=== PATIENT | female | born 1970 | race Caucasian/White ===

== ENCOUNTER 2017-03-22 11:02 | Day surgery (SDC) | payer OTHER ==
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
[~2017-03-22 11:02] MED LIST: Buffered Lidocaine 0.9% SYRIN* 5 ML/SYR SYRINGE INTRADERM ONE; Famotidine IV* 10 MG/ML 2 ML (20 mg) IV ONE
[2017-03-22] MEDS ORDERED: Clindamycin 900 MG IVPREMIX(* 900 MG/50 ML SDV IV ONE (11:05)
[2017-03-22] MEDS ORDERED: Famotidine IV* 10 MG/ML 2 ML (20 mg) ONE (11:05)
[2017-03-22] MEDS ORDERED: Buffered Lidocaine 0.9% SYRIN* 5 ML/SYR SYRINGE ONE (11:05)
[2017-03-22] MEDS ORDERED: Midazolam* 1 MG/ML 5 ML VIAL (5 MG) ONE (12:07)
[2017-03-22] MEDS ORDERED: fentaNYL* 50 MCG/ML 2 ML VIAL (100 MCG VIAL) ONE ×2 (12:07→15:44)
[2017-03-22] MEDS ORDERED: Dexamethasone IV* 4 MG/ML 1 ML (4 MG) ONE (13:46)
[2017-03-22] MEDS ORDERED: ROPIVACAINE 5 MG/ML 30 ML BTL (0.5%) ONE (13:46)
[2017-03-22] MEDS ORDERED: Ketorolac INJ* 30 MG/ML 1 ML VIAL ONE (13:46)
[2017-03-22] MEDS ORDERED: Ondansetron INJ* 2 MG/ML VIAL ONE (13:46)
[2017-03-22] MEDS ORDERED: DiMENhydriNATE IV* 50 MG/ML VIAL ONE (13:46)
[2017-03-22] MEDS ORDERED: Lidocaine 2% PF * 5 ML VIAL ONE (13:46)
[2017-03-22] MEDS ORDERED: Propofol* 10 MG/ML 20 ML BTL IV PUSH ONE ×2 (13:46→16:00)
[2017-03-22] MEDS ORDERED: Acetaminophen TAB* 325 MG PO PRN (14:49)
[2017-03-22] MEDS ORDERED: oxyCODONE TAB* 5 MG TAB PO PRN (14:49)
[2017-03-22] MEDS ORDERED: DiMENhydriNATE IV* 50 MG/ML VIAL IV PUSH PRN (14:49)
[2017-03-22] MEDS ORDERED: HYDROmorphone INJ* 1 MG/ML CARPUJECT SYRINGE IV PRN (14:49)
[2017-03-22] MEDS ORDERED: hydrALAZINE IV* 20 MG/ML VIAL ONE (14:54)
[2017-03-22] MEDS ORDERED: oxyCODONE TAB* 5 MG TAB ONE (15:45)
[2017-03-22] MEDS ORDERED: fentaNYL* 50 MCG/ML 2 ML VIAL (100 MCG VIAL) IV SLOW PU PRN (15:45)
[2017-03-22] MEDS ORDERED: Succinylcholine* 20 MG/ML 10 ML VIAL ONE (16:01)
[2017-03-22 16:45] VITALS: BP 132/80
--- NOTE | 2017-04-11 15:03 | OP ---
CC: PCP, [facility] * DATE OF OPERATION: 03/22/17 - [facility] DATE OF : 66 SURGEON: Sahvon Gutierrez MD PATIENT CLERICAL ASSISTANT: BENJAMIN Mcgarry ANESTHESIOLOGIST: Adrienne Oconnor MD ANESTHESIA: General interscalene block. PRE-OP DIAGNOSIS: Right shoulder partial thickness rotator cuff tear. POST-OP DIAGNOSES: Right shoulder high-grade partial thickness rotator cuff tear with biceps tendinitis and a SLAP tear, small condylar lesion in the superior portion of the glenoid. OPERATIVE PROCEDURE: 1. Right shoulder arthroscopy with extensive glenohumeral debridement including biceps tenotomy and chondroplasty of the small superior GLAD lesion. 2. Subacromial decompression. 3. Rotator cuff repair in a double-row fashion. INDICATIONS: Agnieszka Das is a 46-year-old female who presented with several months of shoulder pain. She has failed conservative management. MRI demonstrated partial thickness rotator cuff tear with biceps tendinitis. After extensive discussion of the risks and benefits of operative versus nonoperative treatment, she has elected to proceed with surgical treatment. Risks and benefits were discussed included, but not limited to bleeding, infection, damage to nerves, vessels, surrounding structures, wound nonhealing, persistent pain, need for further surgery, scarring, stiffness, risk of anesthesia, and risk of DVT. She has elected to proceed. IMPLANTS USED: One 4.75 Healicoil and one MultiFix. COMPLICATIONS: None. ESTIMATED BLOOD LOSS: Minimal. DESCRIPTION OF PROCEDURE: The patient was greeted in the preoperative area by the attending surgeon. Correct extremity was marked and consent was confirmed. She then underwent interscalene nerve block by the anesthesiologist after which she was brought to the operative suite. She was placed in the left lateral decubitus position with all bony prominences padded. She was secured with peg board and an axial roll was placed. The right shoulder was draped unsterile with about 15 pounds of traction. The right shoulder was prepped and draped in the usual sterile fashion beginning with chlorhexidine soap, scrub, and alcohol wipe and a final prep with ChloraPrep. After appropriate surgical pause indicating site, side, procedure, and administration of antibiotics, a standard postero-lateral portal was made sharply with the 11 blade. The scope was introduced into the joint. The joint was examined. There was synovitis anteriorly. There was evidence of superior labral tear. The biceps was somewhat subluxed. The anterior portal was made in outside- in fashion. The cannula was placed. The undersurface of the rotator cuff had high- grade partial thickness tearing greater than 50%. The humeral head had grade 0 changes and glenoid head had grade 0 to 1 changes. The anterior posterior ligament had mild fraying and the inferior recess was intact. The rotator cuff had partial thickness tearing of about 20%, maybe 30%. This was tagged then using 0 PDS suture for identification in the subacromial space. The biceps was tenotomized due to subluxation. The scope was then repositioned in the subacromial space and lateral portal was made in an outside-in fashion. The shaver was used to debride back the abundant bursa that was present. Anterolateral spur was identified and the undersurface of the acromion was skeletonized using the electrocautery device. A 4.0 oval bur was used to do the acromioplasty. All fluid and debris were removed and then attention directed to the rotator cuff. The previously placed 0 PDS suture was then identified and the rotator cuff was probed and found to be easily pliable and therefore decision was made to carry out with repair. This was a small tear. The 11 blade and electrocautery device were used to complete the repair. The shaver was used to debride back the rotator cuff as well as greater tuberosity. The tuberosity was exposed and gently decorticated using an oval bur and then a rasp. The shaver was used to debride back the rotator cuff to healthy tissue. A 4.75 Healicoil anchor was placed and then using that with excellent purchase, the starting awl was then used to make a small microfracture around the greater tuberosity to allow for different points of healing and allow for good bleeding. The sutures were then passed in horizontal mattress configuration through the tendon. These were tied down using arthroscopic knot tying and the strands were then brought in through MultiFix anchor for lateral row fixation. Final images were obtained and the cuff was restored and the shoulder was taken through range of motion and found to be stable. The wounds were copiously irrigated with sterile saline. The portals were closed with 3-0 nylon in interrupted fashion. Sterile dressings were applied as well as Cryo/Cuff and an UltraSling. She was awoken from anesthesia and transferred to the PACU in stable condition. POSTOPERATIVE PLAN: She will be nonweightbearing. She will be in a sling for 6 weeks. She will be allowed range of motion of elbows and hand immediately. I will see the patient back in 10 to 14 days. [id number]/[facility] #: [id number] MTDD
== END 2017-03-22 16:46 | disposition home or self-care (01) ==
LOC: OR 11:02
PROVIDERS: ATTEND Orthopaedic Surgery
DX: S46.011A Strain of muscle(s) and tendon(s) of the rotator cuff of right shoulder, initial encounter (principal); V43.92XA Unspecified car occupant injured in collision with other type car in traffic accident, initial encounter; G89.18 Other acute postprocedural pain; M75.21 Bicipital tendinitis, right shoulder; S43.431A Superior glenoid labrum lesion of right shoulder, initial encounter; Y92.9 Unspecified place or not applicable; M75.81 Other shoulder lesions, right shoulder; E66.9 Obesity, unspecified; Z79.82 Long term (current) use of aspirin; I10 Essential (primary) hypertension; Z86.73 Personal history of transient ischemic attack (TIA), and cerebral infarction without residual deficits; Z88.0 Allergy status to penicillin; Z88.5 Allergy status to narcotic agent
CPT/HCPCS: A9270-GY; C1713; J0330; J0360; J1100; J1240; J1885; J2250; J2405; J2704; J2795; J3010

== ENCOUNTER 2017-07-26 11:50 | Day surgery (SDC) | payer OTHER ==
--- NOTE | 2017-07-17 03:47 | HP ---
PREOPERATIVE HISTORY AND PHYSICAL: DATE OF ADMISSION/SURGERY: 07/26/17 DATE OF OFFICE VISIT: 07/14/17 ATTENDING SURGEON: Dr. Shavon Gutierrez.* (DICTATED BY BENJAMIN CEBALLOS) PROCEDURE: Right shoulder arthroscopic rotator cuff repair. CHIEF COMPLAINT: Right shoulder. HISTORY OF PRESENT ILLNESS: Agnieszka is a 46-year-old female, who presents to the clinic 16 weeks 2 days status post right shoulder rotator cuff repair. She had re- torn her rotator cuff tear and has failed conservative measures to include physical therapy. She continues to have pain; therefore, she has agreed to undergo a right shoulder arthroscopic rotator cuff repair with Dr. Gutierrez on 07/26/17. PAST MEDICAL HISTORY: Obesity, hypertension, high cholesterol, arthritis, history of possible stroke. PAST SURGICAL HISTORY: x3, tubal ligation, appendectomy, hernia surgery, oral surgery, and right shoulder rotator cuff repair. The patient denies prior complications with anesthesia. MEDICATIONS: The patient states that she is currently not taking any of her medications. ALLERGIES: OXYCODONE, MORPHINE, PENICILLIN. FAMILY HISTORY: Positive for diabetes, heart disease, hypertension, stroke, and cancer. Negative for DVT or PE. SOCIAL HISTORY: She lives with her spouse. 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 She reports occasional alcohol consumption. REVIEW OF SYSTEMS: A 14-point review of systems was reviewed with the patient. Positive for current complaint, otherwise negative. Denies chest pain, shortness of breath, fevers, chills, history of bleeding disorder, history of DVT or PE. PHYSICAL EXAMINATION GENERAL: A 46-year-old well-developed, well-nourished female, in no acute distress. Alert and oriented x3. Appropriate mood and affect. VITAL SIGNS: Height 64 inches, weight 320 pounds, blood pressure 126/84, respiratory rate 20, BMI 54.9. HEENT: Normocephalic, atraumatic. PERRLA. Throat clear. NECK: Supple. PULMONARY: Lungs are clear to auscultation bilaterally. No wheezing, rhonchi, or rales. CARDIO: Regular rate and rhythm. S1 and S2. No murmurs, gallops, rubs. No edema. ABDOMEN: Positive bowel sounds. Soft and nontender. NEURO: Alert and oriented x3. Cranial nerves grossly intact. Sensation is intact to light touch. MUSCULOSKELETAL: Right upper extremity: Skin is intact. Well-healed surgical incision. Forward flexion and abduct to 90, externally rotate to 20. +2 radial pulse. Sensation is intact to light touch distally. DIAGNOSTIC STUDIES: MR arthrogram revealed partial thickness tear of the supraspinatus tendon with subacromial impingement. IMPRESSION: Right shoulder rotator cuff tear. PLAN: The patient is scheduled to undergo a right shoulder arthroscopic rotator cuff repair with Dr. Gutierrez on 07/26/17. She will follow up 10 to 14 days postop for followup and suture removal. [place] was sent to the patient's pharmacy for postop pain management and clindamycin for antibiotic prophylaxis. BENJAMIN CEBALLOS [id number]/[facility] #: [id number] MTDD
[~2017-07-26 11:50] MED LIST changes: -Buffered Lidocaine 0.9% SYRIN* 5 ML/SYR SYRINGE INTRADERM ONE; +Cisatracurium* 2 MG/ML MDV 5 ML ONE; +Dexamethasone IV* 4 MG/ML 1 ML (4 MG) ONE; -Famotidine IV* 10 MG/ML 2 ML (20 mg) IV ONE; +KETAMINE HCL* 50 MG/ML 10 ML VIAL ONE; +Ketorolac INJ* 30 MG/ML 1 ML VIAL ONE; +Lidocaine 2% PF * 5 ML VIAL ONE; +Midazolam* 1 MG/ML 10 ML VIAL (10 MG) ONE; +Ondansetron INJ* 2 MG/ML VIAL ONE; +Propofol* 10 MG/ML 20 ML BTL IV PUSH ONE; +ROPIVACAINE 5 MG/ML 30 ML BTL (0.5%) ONE; +fentaNYL* 50 MCG/ML 2 ML VIAL (100 MCG VIAL) ONE
[2017-07-26] MEDS ORDERED: Clindamycin 900 MG IVPREMIX(* 900 MG/50 ML SDV IV ONE (12:01)
[2017-07-26] MEDS ORDERED: Buffered Lidocaine 0.9% SYRIN* 5 ML/SYR SYRINGE ONE (12:01)
[2017-07-26] MEDS ORDERED: Famotidine IV* 10 MG/ML 2 ML (20 mg) ONE (12:01)
[2017-07-26] MEDS ORDERED: Metoclopramide TAB* 10 MG ONE (12:01)
[2017-07-26] MEDS ORDERED: Bupivacaine 0.25% SDV* 30 ML ONE (12:16)
[2017-07-26] MEDS ORDERED: Ondansetron INJ* 2 MG/ML VIAL IV PRN (14:37)
[2017-07-26] MEDS ORDERED: Naloxone* 0.4 MG/ML 1 ML VIAL IV PRN (14:37)
[2017-07-26] MEDS ORDERED: fentaNYL* 50 MCG/ML 2 ML VIAL (100 MCG VIAL) ONE ×2 (16:06→16:56)
[2017-07-26] MEDS: fentaNYL* 50 MCG/ML 2 ML VIAL (100 MCG VIAL) IV PRN ×3 (16:10→16:59)
[2017-07-26] MEDS ORDERED: oxyCODONE/Acetamin 5/325 MG* TAB ONE (16:36)
[2017-07-26] MEDS: oxyCODONE/Acetamin 5/325 MG* TAB PO PRN ×2 (16:38→16:41)
[2017-07-26 17:51] VITALS: BP 144/96
[2017-07-28] MEDS ORDERED: Famotidine IV* 10 MG/ML 2 ML (20 mg) IV ONE (06:00)
[2017-07-28] MEDS ORDERED: Metoclopramide TAB* 10 MG PO ONE (06:00)
[2017-07-28] MEDS ORDERED: Buffered Lidocaine 0.9% SYRIN* 5 ML/SYR SYRINGE INTRADERM ONE (06:00)
--- NOTE | 2017-07-31 19:23 | OP ---
DATE OF OPERATION: 07/26/17 - [facility] DATE OF : 66 SURGEON: Shavon Gutierrez MD ASSOCIATE RESEARCH SCIENTIST: BENJAMIN Mcgarry. An research program assistant was needed for the entirety of the case to help with positioning, retraction, and was utilized throughout all portions of the case. ANESTHESIOLOGIST: Chris Hooper MD ANESTHESIA: General interscalene block. PRE-OP DIAGNOSES: 1. Retear of the right supraspinatus tendon. 2. Morbid obesity. POST-OP DIAGNOSES: 1. Retear of the right supraspinatus tendon. 2. Morbid obesity. OPERATIVE PROCEDURE: 1. Right shoulder revision arthroscopic rotator cuff repair. 2. Glenohumeral debridement. 3. Removal of sutures x3. INDICATIONS: Agnieszka Das is a 47-year-old female, who had evidence of an articular sided partial thickness tear, underwent arthroscopy with biceps tenotomy and rotator cuff repair. She had several episodes of noncompliance versus accidents for which we were concerned for the integrity of the repair. She had an MR arthrogram that demonstrated no obvious tearing, but she had persistent symptoms. She failed conservative management including injections and physical therapy. Risks and benefits of surgery were discussed at length that include, but are not limited to, bleeding, infection, damage to nerves, vessels, surrounding structures, wound nonhealing, persistent pain, need for surgery, scarring, stiffness, incomplete relief of symptoms, risk of anesthesia. She underwent preoperative medical risk assessment for the optimized surgery. IMPLANTS: Two 4.75 Healicoils, 1 MultiFix. DESCRIPTION OF PROCEDURE: The patient was greeted in the preoperative area by the attending surgeon. The correct extremity was marked and consent was confirmed. The patient then underwent interscalene nerve block by the anesthesiologist, after which she was brought back to the operating suite, where she was placed in supine position on the operating room table. She then underwent general anesthesia and endotracheal intubation, after which she was placed in the left lateral decubitus position with all bony prominences padded. She was secured with a peg board. The right arm was draped unsterile with 10 pounds of traction. The right shoulder was then prepped and draped in the usual sterile fashion beginning with chlorhexidine soap, scrub, and alcohol wipe and a final prep of ChloraPrep. After appropriate surgical pause indicating side, site, procedure, and administration of antibiotics, the standard postero-lateral portal was made sharply with an 11 blade. The scope was introduced into the joint. Joint was examined. There was evidence of a previous biceps tenotomy in the superior labrum, anterior and posterior labrum had some mild fraying. There was a small amount of chondrosis in the joint as well. The anterior portal was made in an outside-in fashion. Shaver was used to debride the anterior and posterior superior labrum as well as cartilage. The subscap was intact. The undersurface of the rotator cuff had evidence of partial supraspinatus tearing with the sutures visible. After the debridement was completed, attention was directed to the subacromial space. Lateral portal was made in an outside-in fashion. Shaver was used to debride the abundant bursa that was present. The undersurface of the acromion was skeletonized and debrided back using a 4.0 oval bur. The rotator cuff was probed and again found to have partial thickness tearing on the bursal side. At this point, the previous MultiFix anchor sutures were identified and there was found to be some loss of tension on this. The electrocautery device was then used to complete the tear. The biters were then used to remove the previously placed sutures. This was tedious and the sutures were then carefully removed, so as to be able to repair the rotator cuff back. Once this was done, the greater tuberosity was prepared in the usual fashion with electrocautery device, the rasp, as well as the 4.0 oval bur to gently decorticate the footprint. After this was done, the rotator cuff was also debrided back using a shaver. Then, through 2 separate stab incisions, 4.75 Healicoils were placed. One was just over the previous one, second was placed more posteriorly, but along the medial aspect of the greater tuberosity footprint. Sutures were then placed in horizontal mattress configuration and tied down using arthroscopic knot-tying technique, where prior to being tied down, the awl was then used to gently do a microfracture of the greater tuberosity to allow for further points of fixation. Sutures were then tacked down. Six strands of the remaining sutures were then passed through a MultiFix anchor, which was then impacted into position for lateral row fixation. The shoulder was taken through range of motion and found to be stable. Final images were obtained. The wounds were copiously irrigated with sterile saline. Portals were closed with 3-0 nylon in interrupted fashion. Sterile dressings were applied as well as the Cryo/Cuff and UltraSling. She was awoken from anesthesia and transferred to the PACU in stable condition. POSTOPERATIVE PLAN: She will be nonweightbearing. She will start physical therapy in 4 to 5 weeks. She will be discharged on pain medications and antibiotics. She was instructed again not to use the arm. DVT prophylaxis was considered, but deferred due to no previous personal or family history. [id number]/[facility] #: [id number] MTDD
== END 2017-07-26 17:51 | disposition home or self-care (01) ==
LOC: OR 11:50
PROVIDERS: ATTEND Orthopaedic Surgery
DX: S46.011A Strain of muscle(s) and tendon(s) of the rotator cuff of right shoulder, initial encounter (principal); E66.01 Morbid (severe) obesity due to excess calories; G89.18 Other acute postprocedural pain; E11.9 Type 2 diabetes mellitus without complications; K21.9 Gastro-esophageal reflux disease without esophagitis; I10 Essential (primary) hypertension; Z68.44 Body mass index [BMI] 60.0-69.9, adult
CPT/HCPCS: 81025; A9270-GY; C1713; J1100; J1885; J2250; J2405; J2704; J2795; J3010

== ENCOUNTER 2017-12-25 15:43 | Emergency (ER) | payer OTHER ==
--- OUTSIDE RECORDS SUMMARY | 2017-12-25 16:06 | XMS REPORT ---
:1970 External Reference #:[id number] Author Organization [facility] Address [address] [place] [address] Phone [phone] Care Team Providers Name Role Phone Ailyn Allison NP Care Team Information Sound Controller Unavailable Britta Donnelly M.D. Primary Care Physician Unavailable Payers Type Date Identification Numbers Payment Provider Subscriber Commercial Policy Number: [id number] [place] Agnieszka Das PayID: [id number] [address] [place] [address] Problems Description No Information Family History Date Family Member(s) Problem(s) Comments Father Unknown : (age 46 Years) Mother due to Cancer First Brother Hypertension First Brother 47 First Sister Hypertension First Sister 46 Social History Description No Information Available Allergies, Adverse Reactions, Alerts Date Description Reaction Status Severity Comments 12/08/2017 Morphine Shock active Moderate Medications Medication Date Status Form Strength Qnty SIG Indications Ordering Provider Bupropion HCL Active Tablets ER 150mg 1 by Unknown ER (XL) 00 24HR mouth every day Gabapentin Active Capsules 300mg 1 by Unknown 00 mouth three times a day Vital Signs Date Vital Result Comment 12/08/2017 Weight 352.00 lb Height 64 inches 5'4" BMI (Body Mass Index) 60.4 kg/m2 BP Systolic 146 mmHg BP Diastolic 86 mmHg Heart Rate 79 /min O2 % BldC Oximetry 97 % Body Temperature 98.2 F [place] Score 3 Neck Circumference in inches 16 Pain Level 0 Results Description No Information Procedures Description No Information Plan of Care No Information Available
--- OUTSIDE RECORDS SUMMARY | 2017-12-25 16:06 | XMS REPORT ---
:1970 External Reference #:[id number] Author Organization [facility] Address [address] [place] [address] [place] [address] Phone [phone] Care Team Providers Name Role Phone Ariadna Fatima MD Primary Care Physician Unavailable Payers Type Date Identification Numbers Payment Provider Subscriber Commercial Effective: Policy Number: [facility] Broderick Das 2012 [id number] Group Number: [id number] [address] Group Name: [place] [address] PayID: [id number] Workers Compensation Onset: 2011 Policy Number: Marilia Muniz [id number] Pippa PayID: [id number] [address] [place] [address] Workers Compensation Effective: Policy Number: Owen Muniz 2016 [id number] Pippa Onset: 2016 Group Name: [phone] [address] PayID: [id number] [place] [address] Problems Date Description Provider Status Onset: 10/21/2016 Chest pain Ryan Harmon M.D., Active [facility] Onset: 10/21/2016 Dyspnea Ryan Harmon M.D., Active [facility] Onset: 01/24/2017 Sprain of shoulder and upper arm Shavon Gutierrez MD Active Onset: 01/24/2017 Injury of shoulder region Shavon Gutierrez MD Active Family History Date Family Member(s) Problem(s) Comments General brain cancer Mother Hypertension Mother Lung Cancer Mother Brain Cancer Mother Breast Cancer Mother clotting disorder Social History Type Date Description Comments Marital Status Lives With Occupation home health care provider ETOH Use Occasionally consumes wine Smoking Patient has never smoked Recreational Drug Use Denies Drug Use Daily Caffeine 03/01/2017 Does Not Consume Caffeine Exercise Type/Frequency Exercises regularly walks , upper body at PT Allergies, Adverse Reactions, Alerts Date Description Reaction Status Severity Comments 07/19/2010 Oxycodone active Questionable allergy since she has taken now without reactio 07/19/2010 Morphine active 07/22/2010 Penicillin active 09/21/2017 Tramadol Itching active Medications Medication Date Status Form Strength Qnty SIG Indications Ordering Provider Edwards 07/24 Active Tablets 5-325mg 20tab 1 tab by s mouth every Yaseen, 6 hours as MD needed post op pain Vitamin D Active Tablets 1000U 1 po bid Unknown /0000 Womens One Daily Active Tablets 1 by mouth Unknown /0000 every day Bupropion HCL ER Active Tablets 150mg 1 by mouth Unknown (SR) /0000 ER 12HR every day Butalbital/Acetami Active Capsules 50-325-40 take 1 Unknown nophen/Caffeine /0000 mg capsule as needed for bad migraine n mdd 1 Gabapentin Active Tablets 600mg take one Unknown /0000 tablet by mouth three times a day Diclofenac Sodium 09/07 Hx Tablets 75mg 60tab take [address] s mouth twice Yaseen, - a day for 12/24 pain Tramadol HCL 07/31 Hx Tablets 50mg 30tab 1-2 tablets s by mouth Sanchez, - every 6 09/08 hours as needed pain Zofran Odt 07/27 Hx Tablets 4mg 30tab take 1 by Dispers s mouth Yaseen, - sublingual 12/24 every hours as needed nausea. Clindamycin HCL 07/14 Hx Capsules 300mg 12cap take 1 by s mouth four Yaseen, - times a day 09/08 for 3 days post op. Do not take before surgery Oxycodone HCL 03/23 Hx Tablets 5mg 30tab 1 tabs by s mouth bid Yaseen, - prn 12/24 Clindamycin HCL 03/22 Hx Capsules 300mg 12cap take 1 by s mouth four Yaseen, - times a day 04/05 for 3 days Percocet 03/14 Hx Tablets 5-325mg 40tab 1-2 tabs by Chivo6Rochelle s mouth every Yaseen, - 4-6 hours 12/24 as needed post op pain. Ibuprofen 03/14 Hx Tablets 800mg 60tab take 1 by Chivo6Rochelle s mouth three Yaseen, - times a day 12/24 as needed for pain. Ibuprofen 01/26 Hx Tablets 800mg 60tab take 1 by lissett s mouth three Yaseen, - times a day 12/24 as needed for pain Valium 07/22 Hx Tablets 10mg 1tabs 1 po 1 hr Andrae . prior to Padmini, - mri M.DMuna 01/28 Robaxin-750 07/19 Hx Tablets 750mg 30tab 1-2 po q Andrae M. s 8hrs prn Padmini, - muscle M.DMuna 01/28 Lyrica Hx Capsules 50mg 60cap 1 po tid Unknown /0000 s - 10/07 Meloxicam Hx Tablets 7.5mg 30tab 1 po qd Unknown /0000 s - 10/07 Lidoderm Hx Patches 5% 30uni topical 12 Unknown /0000 ts hours - 10/07 Tramadol HCL Hx Tablets 50mg 100ta qid prn Unknown /0000 bs - 10/07 Hydrocodone/Acetam Hx Tablets 5-325mg 20tab 1-2 po qid Unknown inophen /0000 s prn pain - 10/07 Prednisone Hx Tablets 20mg 20tab 3 pills qd Unknown /0000 s for 5 days - 10/07 Aspir-81 00 Hx Tablets 81mg 1 by mouth Unknown /0000 DR every day - 12/24 Hydrochlorothiazid Hx Tablets 25mg 1 by mouth Unknown e /0000 every day - 03/13 Atorvastatin 00/00 Hx Tablets 20mg take 1 Unknown Calcium /0000 tablet at - bedtime 10/20 Amlodipine Hx Tablets 10mg 1 by mouth Unknown Besylate /0000 every day - 03/13 Losartan Potassium 00 Hx Tablets 100mg 1 by mouth Unknown /0000 every day - 12/24 Aleve 00 Hx Tablets 220mg 1 po bid Unknown /0000 prn - 12/21 Fioricet Hx Capsules 50-300-40 1-2 by Unknown /0000 mg mouth every - 4 hours prn 12/24 headache Nystop Hx Powder 839867Hkg apply twice Unknown /0000 t/GM daily to - affected 12/24 areas pr Oxycodone-Acetamin Hx Tablets 5-325mg 1 tabs by Unknown ophen /0000 mouth every - 6 hours as 03/13 needed for pain Tramadol HCL Hx Tablets 50mg 60tab 1-2 tablets Zaneb /0000 s every 6 Yaseen, - hours as 02/28 needed Ibuprofen Hx Tablets 800mg by mouth Unknown /0000 three times - a day as 01/26 Tramadol HCL ER Hx Caps ER 100mg 1 by mouth Unknown /0000 24HR as needed - 09/08 Medications Administered in Office Medication Date Status Form Strength Qnty SIG Indications Ordering Provider Triamcinolone 06/06/ Administered Injection Zaneb (Kenalog) 2016 MD Matt Triamcinolone 01/24/ Administered Injection Zaneb (Kenalog) 2016 MD Matt Vital Signs Date Vital Result Comment 12/25/2017 Height 64 inches 5'4" Weight 320.00 lb BP Systolic 140 mmHg BP Diastolic 94 mmHg Body Temperature 97.3 F Pain Level 3 BMI (Body Mass Index) 54.9 kg/m2 10/31/2017 Height 64 inches 5'4" Weight 320.00 lb Heart Rate 76 /min BP Systolic 150 mmHg BP Diastolic 100 mmHg Respiratory Rate 16 /min Body Temperature 97.2 F Pain Level 5 BMI (Body Mass Index) 54.9 kg/m2 09/21/2017 Height 64 inches 5'4" Weight 320.00 lb Heart Rate 70 /min BP Systolic Sitting 126 mmHg BP Diastolic Sitting 90 mmHg Respiratory Rate 16 /min Pain Level 7 BMI (Body Mass Index) 54.9 kg/m2 08/08/2017 Height 64 inches 5'4" Weight 320.00 lb Heart Rate 87 /min Respiratory Rate 18 /min Body Temperature 97.8 F Pain Level 3 BMI (Body Mass Index) 54.9 kg/m2 07/14/2017 Height 64 inches 5'4" Weight 320.00 lb BP Systolic 126 mmHg BP Diastolic 84 mmHg Respiratory Rate 20 /min Pain Level 5 BMI (Body Mass Index) 54.9 kg/m2 06/06/2017 Height 64 inches 5'4" Weight 320.00 lb BP Systolic 136 mmHg BP Diastolic 90 mmHg Respiratory Rate 20 /min Body Temperature 97.6 F Pain Level 5 BMI (Body Mass Index) 54.9 kg/m2 05/26/2017 Height 64 inches 5'4" Weight 320.00 lb BP Systolic 140 mmHg BP Diastolic 80 mmHg Body Temperature 98.0 F Pain Level 6 BMI (Body Mass Index) 54.9 kg/m2 05/02/2017 Height 64.5 inches 5'4.50" Weight 335.00 lb Respiratory Rate 16 /min Pain Level 7 BMI (Body Mass Index) 56.6 kg/m2 04/06/2017 Height 64.5 inches 5'4.50" Weight 335.00 lb Heart Rate 76 /min Respiratory Rate 15 /min Body Temperature 97.1 F Pain Level 7 BMI (Body Mass Index) 56.6 kg/m2 03/30/2017 Height 64.5 inches 5'4.50" Weight 335.00 lb BP Systolic 142 mmHg BP Diastolic 88 mmHg Respiratory Rate 20 /min Body Temperature 97.2 F Pain Level 8 BMI (Body Mass Index) 56.6 kg/m2 03/14/2017 Heart Rate 68 /min Respiratory Rate 17 /min Body Temperature 97.2 F 03/01/2017 Height 64.5 inches 5'4.50" Heart Rate 76 /min BP Systolic Sitting 130 mmHg Lue thigh cuff BP Diastolic Sitting 86 mmHg Lue thigh cuff BP Systolic Standing 136 mmHg Lue thigh cuff BP Diastolic Standing 88 mmHg Lue thigh cuff Respiratory Rate 16 /min Ejection Fraction 55-60% echo 10/201602/14/2017 Height 64.5 inches 5'4.50" Weight 335.00 lb Heart Rate 72 /min BP Systolic 142 mmHg BP Diastolic 88 mmHg Respiratory Rate 18 /min Body Temperature 97.5 F Pain Level 7 BMI (Body Mass Index) 56.6 kg/m2 01/24/2017 Height 64.5 inches 5'4.50" Weight 335.00 lb Heart Rate 68 /min BP Systolic Sitting 140 mmHg BP Diastolic Sitting 90 mmHg Body Temperature 96.8 F Pain Level 7 BMI (Body Mass Index) 56.6 kg/m2 12/23/2016 Height 63.50 inches 5'3.50" Weight 333.44 lb Heart Rate 74 /min BP Systolic Sitting 132 mmHg reg cuff- LA-on forearm BP Diastolic Sitting 78 mmHg reg cuff- LA-on forearm BP Systolic Standing 138 mmHg reg cuff- LA-on forearm BP Diastolic Standing 82 mmHg reg cuff- LA-on forearm Respiratory Rate 16 /min O2 % BldC Oximetry 98 % Ra BMI (Body Mass Index) 58.1 kg/m2 10/21/2016 Height 63.50 inches 5'3.50" Weight 333.00 lb Heart Rate 72 /min BP Systolic 128 mmHg Ra thigh cuff BP Diastolic 94 mmHg Ra thigh cuff BP Systolic Sitting 124 mmHg LA thigh Cuff BP Diastolic Sitting 92 mmHg LA thigh Cuff BP Systolic Standing 132 mmHg LA thigh cuff BP Diastolic Standing 90 mmHg LA thigh cuff Respiratory Rate 20 /min Pain Level 3 O2 % BldC Oximetry 98 % BMI (Body Mass Index) 58.1 kg/m2 10/09/2015 Height 64 inches 5'4" Weight 325.00 lb Heart Rate 64 /min BP Systolic Sitting 136 mmHg BP Diastolic Sitting 94 mmHg BMI (Body Mass Index) 55.8 kg/m2 01/28/2013 Weight 338.00 lb Results Test Date Test Result H/L Range Note Laboratory test finding 07/26/2017 Point of Care Glucose 74 mg/dL 70-100 1 Xray 01/28/2013 Shoulder Complete LT <pending> Min Of 2 Views 1 Fur Coat Sewer: [id number] Procedures Date CPT Code Description Status 07/26/2017 69617 Arthroscopy Shoulder,W/Rotator Cuff Repair Completed 07/26/2017 18950 Arthroscopy Shoulder,W/Rotator Cuff Repair Completed 07/26/2017 22580 Arthroscopy Shoulder Debridement Extensive Completed 07/26/2017 24407 Arthroscopy Shoulder Debridement Extensive Completed 06/06/2017 97772 Inject/Drain Joint/Bursa Major W/O US Completed 03/22/2017 63999 Arthroscopy Shoulder,W/Rotator Cuff Repair Completed 03/22/2017 61790 Arthroscopy Shoulder,W/Rotator Cuff Repair Completed 03/22/2017 80449 Arthroscopy,Shoulder Decompression Of Subacromial Space Completed W/Acromio 03/22/2017 50604 Arthroscopy,Shoulder Decompression Of Subacromial Space Completed W/Acromio 03/01/2017 89821 EKG Tracing & Interpretation Completed 01/24/2017 47197 Inject/Drain Joint/Bursa Major W/O US Completed 12/07/2016 90060 Cardiac Event Monitor Completed 11/08/2016 31321 Event Monitor/Phys Review/Interp. Completed 11/08/2016 72622 Cardiac Event Monitor Completed 10/31/2016 09270 ECHO Stress Test Incl Perf Contiuous ekg Monitoring Completed W/Phys Superv 10/28/2016 32028 ECHO Transthoracic, Real-Time 2D With Doppler And Color Completed Flow 10/26/2016 79736 Holter Monitor Review (24 hr)dr review & interp only Completed 10/25/2016 71919 ECG Monitor/Recording W/Visual Superimposition Scanning Completed 10/21/2016 86218 EKG Tracing & Interpretation Completed Encounters Type Date Location Provider CPT E/M Dx Office Visit 10/31/2017 [place] [address] S46.011D 9:00a [facility] Office Visit 07/14/2017 [place] [address] S46.011D 8:45a [facility] Office Visit 03/01/2017 [facility] Ryan Harmon, 31249 R06.02 11:15a Marcial Langston, [facility] Z01.810 S46.011D S46.111D Office Visit 02/14/2017 9:45a [facility] [place] [address] S46.011A [facility] S46.101A S46.111A Office Visit 01/24/2017 9:00a [facility] [place] [address] S46.011A [facility] S46.101A S46.111A Office Visit 12/23/2016 1:30p [facility], 06910 R06.02 Marcial Hu M.D., ADE[place], [facility] Office Visit 10/21/2016 10:00a [facility]on, 38909 R07.9 [facility] FACC, FASNC R06.02 R94.31 Office Visit 10/09/2015 11:00a [facility] [place] [address] S80.02xA [facility] M17.12 Office Visit 01/28/2013 3:00p [facility] Tyler Sullivan M.D. 97747 840.8 AT [place] Office Visit 07/21/2011 10:45a [facility] [place], 42107 847.2 Marcial Langston Office Visit 07/19/2010 2:15p [facility] [place], 99757 724.2 Marcial Langston 724.3 Plan of Care Future Appointment(s):02/08/2018 8:45 am - Shavon Gutierrez MD at [facility]12/25/2017 - BENJAMIN Mcgarry-CS46.011D Strain of musc/ tend the rotator cuff of right shoulder, subsFollow up:Follow up: 6-8 weeks
--- OUTSIDE RECORDS SUMMARY | 2017-12-25 16:06 | XMS REPORT ---
:1970 External Reference #:[id number] Author Organization [facility] Address [address] [place] [address] Phone [phone] Care Team Providers Name Role Phone Ailyn Allison NP Care Team Information [employer]er [employer] Unavailable Britta Donnelly M.D. Primary Care Physician Unavailable Payers Type Date Identification Numbers Payment Provider Subscriber Commercial Policy Number: [id number] [place]/Lesvia De La Torre Agnieszka Das PayID: [id number] [address] [place] [address] Problems Description No Information Family History Date [...] Oximetry 97 % Body Temperature 98.2 F [place] Score 3 Neck Circumference in inches 16 Pain Level 0 Results Description No Information Procedures Description No Information Plan of Care No Information Available
--- NOTE | 2017-12-25 16:12 | UC ---
Ear Complaint HPI - HPI Summary HPI Summary: Patient presents complaining of pain in her left ear ever since yesterday afternoon. She describes it as gradual in onset and worsening. She states that it radiates into her left eye and she feels light sensitive as a result. She denies any history of drainage from the ear or injury to the ear. She denies any fever or chills, headache and loss of vision. She did have a preop wellness appointment today "but didn't tell them because it wasn't that bothersome". On review of systems she does admit to some mild ringing. - History of Current Complaint Stated Complaint: LEFT EAR PAIN Time Seen by Provider: 12/25/17 16:04 Hx Obtained From: Patient Hx Last Menstrual Period: 2011 Onset/Duration: Gradual Onset Aggravating Factors: Nothing Alleviating Factors: Nothing Associated Signs/Symptoms: Negative: Discharge, Hearing Loss, Foreign Body Sensation, Trauma to Ear, Swelling @ - Allergies/Home Medications Allergies/Adverse Reactions: Allergies Allergy/AdvReac Type Severity Reaction Status Date / Time latex Allergy Severe See Comment Verified 12/25/17 16:07 morphine Allergy Severe Anaphylatic Verified 12/25/17 16:07 Shock Penicillins Allergy Severe Nausea And Verified 12/25/17 16:07 Vomiting NSAIDS (Non-Steroidal AdvReac See Comment Verified 12/25/17 16:17 Anti-Inflamma Home Medications: Home Medications Gabapentin 600 mg PO TID 12/25/17 [History Confirmed 12/25/17] buPROPion TAB* [Wellbutrin TAB*] 75 mg PO DAILY 12/25/17 [History Confirmed ] PMH/Surg Hx/FS Hx/Imm Hx - Additional Past Medical History Additional PMH: Chronic right shoulder pain secondary to injury, depression, vitamin D deficiency. - Surgical History Surgical History: Yes Surgery Procedure, Year, and Place: 1994. 1997. 2000 X 3, [facility] (, [facility] [place] Appendectomy, [facility], 1976;. Hernia Repair x 2, [facility] ([facility]), 1998;. 1975 Tonsillectomy/ Addenoidectomy, [facility]. Rt SHOULDER - ROTATOR REPAIR, BICEP,TRICEP & LABRAL REPAIR - Family History Known Family History: Positive: Hypertension - Social History Occupation: Disabled Alcohol Use: Occasionally Alcohol Amount: [place] Substance Use Type: None Smoking Status (MU): Never Smoked Tobacco Have You Smoked in the Last Year: No - Immunization History Most Recent Tetanus Shot: 2006 Vaccination Up to Date: Yes Review of Systems Constitutional: Negative Skin: Negative Eyes: Photophobia - L, Other - no blurry or double vision ENT: Ear Ache - L Respiratory: Negative Cardiovascular: Negative Gastrointestinal: Negative Genitourinary: Negative Motor: Negative Neurovascular: Negative Musculoskeletal: Negative Neurological: Negative Psychological: Negative Is Patient Immunocompromised?: No All Other Systems Reviewed And Are Negative: Yes Physical Exam Triage Information Reviewed: Yes Appearance: Well-Appearing Vital Signs Reviewed: Yes Eyes: Positive: Other: - No periorbital edema or erythema. Pupils are equal round reactive to light, extraocular movements intact. Anterior chambers clear. Fluorescein stain placed and no uptake. No foreign body under the lids on the left. No pre-or postauricular adenopathy. Patient had no difficulty keeping either eye open during her eye exam seemingly with distraction. ENT: Positive: Pharynx normal, TMs normal - R, TM red - Slightly injected and retracted but the canal is clear., Other - No temporal cords or tenderness over the temporal regions appreciated. Patient notes slight tenderness over the left anterior ear in the area of the trigeminal nerve.. Negative: Nasal congestion, Nasal drainage Neck: Positive: Supple, Nontender, No Lymphadenopathy Respiratory: Positive: Lungs clear, Normal breath sounds Cardiovascular: Positive: RRR, No Murmur Abdomen Description: Positive: Nontender, No Organomegaly, Soft Bowel Sounds: Positive: Present Musculoskeletal: Positive: ROM Intact Neurological: Positive: Other: - Patient alert and oriented to person place and time. Cranial nerves II through XII grossly intact. Sensory vascular motor is intact 4. Patient has normal steady gait. NIH=0. Psychological: Positive: Age Appropriate Behavior Skin Exam: Normal Diagnostics - Radiology No standard instances Xray Interpretation: No Acute Changes Radiology Interpretation Completed By: Radiologist - CT Brain Ear Complaint Course/Dx - Course Course Of Treatment: Case d/w Dr Stanley. Will CT just to be thorough; however, low suspicion for intracranial process. if unremarkable, will tx with antibiotic , medrol dose kasey and f/u with her ENT, Dr Pacheco. Patient is nontoxic. Her eye exam is unremarkable. There is no evidence of corneal ulcers, dendrites or abrasions. During distraction, there was no photophobia. Her neuro exam is reassuring and unremarkable. There is nothing to suggest Marquez's palsy. There is nothing to suggest temporal arteritis. Pt has +/-slight tenderness over the trigeminal nerve. CT=NAD. since tm mildly injected will tx with cefdinir gien pcn allergy and steroid. pt has taken cephalosporins with no issues. no hx htn , may be visit related. will have bp rechecked on f/u. - Differential Dx/Diagnosis Provider Diagnoses: Otalgia L ear. Elevated BP Discharge - Sign-Out/Discharge Documenting (check all that apply): Patient Departure - Discharge Plan Condition: Stable Disposition: HOME Prescriptions: Cefdinir [Cefdinir 300 MG CAP] 300 mg PO BID 10 Days #20 capsule methylPREDNISolone [Medrol Dosepak 4 MG*] 0 mg PO .SEE KASEY INSTRUCTION #1 tab Patient Education Materials: Earache (ED) Referrals: Maico Pacheco MD [Medical Doctor] - 3 Days Britta Donnelly MD [Primary Care Provider] - As Soon As Possible Additional Instructions: FOLLOW UP PRIMARY CARE FOR BP RECHECK. - Billing Disposition and Condition Condition: STABLE Disposition: Home Attestation Statement User Type: Provider - I was available for consult. This patient was seen by the JODI. The patient was not presented to, seen by, or examined by me. -Gary
[2017-12-25 16:14] VITALS: BP 166/98
[2017-12-25] MEDS ORDERED: Fluorescein Sod TOPICAL 0.6* 0.6 MG TEST OPHTHALMIC ONE (16:29)
--- NOTE | 2017-12-25 17:26 | RAD ---
INDICATION: Left ear tinnitus COMPARISON: None TECHNIQUE: Noncontrast axial source images were acquired from the skull base to the vertex. Images were repeated due to motion artifact. FINDINGS: Ventricles/sulci: The ventricles and cisterns are normal in size and configuration for age. Brain parenchyma: There is no focal parenchymal finding, evidence of intracranial mass, or intracranial mass effect. Intracranial hemorrhage:None. Extra-axial spaces: There are no abnormal extra axial fluid collections or evidence of extra-axial mass. Calvarium: There is no calvarial fracture or other calvarial abnormality. Scalp: There is no evidence of scalp or extracalvarial soft tissue abnormality. Paranasal sinuses/mastoid: The paranasal sinuses and mastoid air cells are clear. Other: None. IMPRESSION: NO ACUTE INTRACRANIAL FINDINGS.
== END 2017-12-25 18:16 | disposition home or self-care (01) ==
LOC: UCCORT 15:43
DX: H92.02 Otalgia, left ear (principal); M25.511 Pain in right shoulder; F32.9 Major depressive disorder, single episode, unspecified; E55.9 Vitamin D deficiency, unspecified; G89.29 Other chronic pain; I10 Essential (primary) hypertension
CPT/HCPCS: 70450; 99212; G0463

== ENCOUNTER 2018-04-24 05:51 | Inpatient (IN) | payer OTHER ==
[~2018-04-24 05:51] MED LIST changes: +Buffered Lidocaine 0.9% SYRIN* 5 ML/SYR SYRINGE INTRADERM ONE; -Cisatracurium* 2 MG/ML MDV 5 ML ONE; -Dexamethasone IV* 4 MG/ML 1 ML (4 MG) ONE; -KETAMINE HCL* 50 MG/ML 10 ML VIAL ONE; -Ketorolac INJ* 30 MG/ML 1 ML VIAL ONE; -Lidocaine 2% PF * 5 ML VIAL ONE; -Midazolam* 1 MG/ML 10 ML VIAL (10 MG) ONE; -Ondansetron INJ* 2 MG/ML VIAL ONE; -Propofol* 10 MG/ML 20 ML BTL IV PUSH ONE; -ROPIVACAINE 5 MG/ML 30 ML BTL (0.5%) ONE; -fentaNYL* 50 MCG/ML 2 ML VIAL (100 MCG VIAL) ONE
--- OUTSIDE RECORDS SUMMARY | 2018-04-24 05:55 | XMS REPORT ---
:1970 External Reference #:[id number] Author Organization [facility] Address [address] [place] [address] [place] [address] Phone [phone] Care Team Providers Name Role Phone Ariadna Fatima MD Primary Care Physician Unavailable Payers Type Date Identification Numbers Payment Provider Subscriber Commercial Effective: Policy Number: [employer] [facility] Broderick Das 2012 [id number] Group Number: [id number] [address] Group Name: [place] [address] PayID: [id number] Workers Compensation Onset: 2011 Policy Number: Marilia Muniz [id number] Pippa PayID: [id number] [address] [place] [address] Workers Compensation Effective: Policy Number: Owen Muniz 2016 [id number] Pippa Expires: 2018 Group Name: (D) [phone] [address] Onset: 2016 PayID: [id number] [place] [address] Problems Date Description Provider Status Onset: 10/21/2016 Chest pain Ryan Harmon M.D., Active [facility], [facility] Onset: 10/21/2016 Dyspnea Ryan Harmon M.D., Active [facility], F[facility]EN[facility] Onset: 01/24/2017 Sprain of shoulder and [...] Form Strength Qnty SIG Indications Ordering Provider [place] 07/24 Active Tablets 5-325mg 20tab 1 tab by lissett s mouth every Yaseen, 6 hours as [...] Tablets 75mg 60tab take [address] archuleta mouth twice Yaseen, - a day for 12/24 pain Tramadol HCL 07/31 Hx Tablets 50mg 30tab 1-2 tablets s by mouth Sanchez, - every 6 09/08 hours as needed pain Zofran Odt 07/27 Hx Tablets 4mg 30tab take 1 by lissett Dispers s mouth Yasetamiko, - sublingual 12/24 every hours as needed nausea. Clindamycin HCL 07/14 Hx Capsules 300mg 12cap take 1 by lissett s mouth four Yaseen, - times a day 09/08 for 3 days post op. Do not take before surgery Oxycodone HCL 03/23 Hx Tablets 5mg 30tab 1 tabs by Shavon s mouth bid Yaseen, - prn MD 12/24 Clindamycin HCL 03/22 Hx Capsules 300mg 12cap take 1 by hilaria s mouth four Yaseen, - times a day 04/05 for 3 days Percocet 03/14 Hx Tablets 5-325mg 40tab 1-2 tabs by S46.011Dean s mouth every Yaseen, - 4-6 hours 12/24 as needed post op pain. Ibuprofen 03/14 Hx Tablets 800mg 60tab take 1 by Chivo6.011Dean s mouth three Yaseen, - times a day 12/24 as needed for pain. Ibuprofen 01/26 Hx Tablets 800mg 60tab take 1 by hilaria s mouth three Yaseen, - times a day 12/24 as needed for pain Valium 07/22 Hx Tablets 10mg 1tabs 1 po 1 hr Andrae . prior to Padmini, - mri M.DMuna 01/28 Robaxin-750 07/19 Hx Tablets 750mg 30tab 1-2 po q Andrae M. s 8hrs prn Padmini - muscle M.Gallito 01/28 Lyrica Hx Capsules 50mg 60cap 1 [...] s for 5 days - 10/07 Aspir-81 Hx Tablets 81mg 1 by mouth Unknown /0000 DR every day - 12/24 Hydrochlorothiazid Hx Tablets 25mg 1 by mouth Unknown e /0000 every day - 03/13 Atorvastatin Hx Tablets 20mg take 1 Unknown Calcium [...] hours prn 12/24 headache Nystop Hx Powder [id number] apply twice Unknown /0000 t/GM daily to [...] Test Date Test Result H/L Range Note CBC No Diff 04/18/2018 White Blood Count 8.1 10^3/uL 3.5-10.8 Red Blood Count 4.93 10^6/uL 4.00-5.40 Hemoglobin 14.8 g/dL 12.0-16.0 Hematocrit 44 % 35-47 Mean Corpuscular Volume 89 fL 80-97 Mean Corpuscular Hemoglobin 30 pg 27-31 Mean Corpuscular HGB Conc 34 g/dL 31-36 Red Cell Distribution Width 14 % 10.5-15 Platelet Count 289 10^3/uL 150-450 Mean Platelet Volume 9.1 fL 7.4-10.4 Basic Metabolic Panel 04/18/2018 Sodium 140 mmol/L 135-145 Potassium 3.6 mmol/L 3.5-5.0 Chloride 102 mmol/L 101-111 Co2 Carbon Dioxide 31 mmol/L 22-32 Anion Gap 7 mmol/L 2-11 Glucose 78 mg/dL 70-100 Blood Urea Nitrogen 14 mg/dL 6-24 Creatinine 0.75 mg/dL 0.51-0.95 BUN/Creatinine Ratio 18.7 8-20 Calcium 9.7 mg/dL 8.6-10.3 Egfr Non- 82.1 >60 Egfr 99.4 >60 1 Laboratory test finding 07/26/2017 Point of Care Glucose 74 mg/dL 70-100 2 Xray 01/28/2013 Shoulder Complete LT Min Of <pending> 2 Views 1 Because ethnic data is not always readily available, this report includes an eGFR for both -Americans and non- Americans. The National Kidney Disease Education Program (NKDEP) does not endorse the use of the MDRD equation for patients that are not between the ages of 18 and 70, are , have extremes of body size, muscle mass, or nutritional status, or are non- or non-. According to the National Kidney Foundation, irrespective of diagnosis, the stage of the disease is based on the level of kidney function: Stage Description GFR(mL/min/1.73 m(2)) 1 Kidney damage with normal or decreased GFR 90 2 Kidney damage with mild decrease in GFR 60-89 3 Moderate decrease in GFR 30-59 4 Severe decrease in GFR 15-29 5 Kidney failure <15 (or dialysis) 2 Director Business Intelligence: [id number] Procedures Date CPT Code Description Status 07/26/2017 96556 Arthroscopy Shoulder,W/Rotator Cuff Repair Completed 07/26/2017 26826 Arthroscopy Shoulder,W/Rotator Cuff Repair Completed 07/26/2017 53054 Arthroscopy Shoulder Debridement Extensive Completed 07/26/2017 87925 Arthroscopy Shoulder Debridement Extensive Completed 06/06/2017 20003 Inject/Drain Joint/Bursa Major W/O US Completed 03/22/2017 25935 Arthroscopy Shoulder,W/Rotator Cuff Repair Completed 03/22/2017 55028 Arthroscopy Shoulder,W/Rotator Cuff Repair Completed 03/22/2017 92968 Arthroscopy,Shoulder Decompression Of Subacromial Space Completed W/Acromio 03/22/2017 55433 Arthroscopy,Shoulder Decompression Of Subacromial Space Completed W/Acromio 03/01/2017 39545 EKG Tracing & Interpretation Completed 01/24/2017 99355 Inject/Drain Joint/Bursa Major W/O US Completed 12/07/2016 37847 Cardiac Event Monitor Completed 11/08/2016 21687 Event Monitor/Phys Review/Interp. Completed 11/08/2016 33239 Cardiac Event Monitor Completed 10/31/2016 68317 ECHO Stress Test Incl Perf Contiuous ekg Monitoring Completed W/Phys Superv 10/28/2016 24963 ECHO Transthoracic, Real-Time 2D With Doppler And Color Completed Flow 10/26/2016 84246 Holter Monitor Review (24 hr)dr review & interp only Completed 10/25/2016 32182 ECG Monitor/Recording W/Visual Superimposition Scanning Completed 10/21/2016 66945 EKG Tracing & Interpretation Completed Encounters Type Date Location Provider CPT E/M Dx Office Visit 12/25/2017 [facility] Grisel Mancera, 37268 S46.011D 10:15a Of C.MCheryl PA-C Office Visit 10/31/2017 [place] [address] S46.011D 9:00a Of C.M.A. Office Visit 07/14/2017 [place] [address] S46.011D 8:45a Of C.M.A. Office Visit 03/01/2017 [facility] Of Ryan Harmon, 34797 R06.02 11:15a Marcial Langston, [facility] Z01.810 S46.011D S46.111D Office Visit 02/14/2017 9:45a [facility] [place] [address] S46.011A C.M.A. S46.101A S46.111A Office Visit 01/24/2017 9:00a [facility] [place] [address] S46.011A C.M.A. S46.101A S46.111A Office Visit 12/23/2016 1:30p [facility] Of Ryan Harmon, 66863 R06.02 Marcial Hu M.D., [facility] Office Visit 10/21/2016 10:00a [facility], 98089 R07.9 [facility] R06.02 R94.31 Office Visit 10/09/2015 11:00a [facility] [place] [address] S80.02xA [facility] M17.12 Office Visit 01/28/2013 3:00p [facility] Tyler Sullivan M.D. 18384 840.8 AT [place] Office Visit 07/21/2011 10:45a [facility] [place], 26483 847.2 Marcial Langston Office Visit 07/19/2010 2:15p [facility] [place], 02103 724.2 Marcial Langston 724.3 Plan of Care 12/25/2017 - BENJAMIN Mcgarry-CS46.011D Strain of musc/tend the rotator cuff of right shoulder, subsFollow up:Follow up: 6-8 weeks
--- OUTSIDE RECORDS SUMMARY | 2018-04-24 05:55 | XMS REPORT | Continuity of Care Document ---
:1970 External Reference #:[id number] Author Name Nakia Cantu NP Address [address] [place] [address] Care Team Providers Name Role Phone Ailyn Allison NP Care Team Information Dye Range Feeder Unavailable Britta Donnelly M.D. Primary Care Physician Unavailable Payers Type Date Identification Numbers Payment Provider Subscriber Policy Number: [id number] [employer]Lesvia De La Torre Agnieszka Das PayID: [id number] [address] [place] [address] Advance Directives Description No Information Available Problems Description No Information Family History Date Family Member(s) Problem(s) Comments Father Unknown : (age 46 Years) Mother due to Cancer First Brother Hypertension First Brother 47 First Sister Hypertension First Sister 46 Social History Type Date Description Comments Sex Female Allergies, Adverse Reactions, Alerts Date Description Reaction Status Severity Comments 12/08/2017 Morphine Shock Active Moderate Medications Medication Date Status Form Strength Qnty SIG Indications Ordering Provider Bupropion HCL Active Tablets ER 150mg 1 by Unknown ER (XL) 00 24HR mouth every day Gabapentin Active Capsules 300mg 1 by Unknown 00 mouth three times a day Immunizations Description No Information Available Vital Signs Date Vital Result Comment 03/26/2018 2:22pm Weight 342.00 lb Height 64 inches 5'4" BMI (Body Mass Index) 58.7 kg/m2 BP Systolic 161 mmHg BP Diastolic 68 mmHg Heart Rate 79 /min O2 % BldC Oximetry 98 % Body Temperature 98.1 F [place] Score 7 Pain Level 0 01/03/2018 11:00am Weight 352.00 lb Height 64 inches 5'4" BMI (Body Mass Index) 60.4 kg/m2 BP Systolic 172 mmHg 165/96 BP Diastolic 107 mmHg 165/96 Heart Rate 83 /min O2 % BldC Oximetry 97 % Body Temperature 96.8 F Pain Level 0 12/08/2017 9:42am Weight 352.00 lb Height 64 inches 5'4" BMI (Body Mass Index) 60.4 kg/m2 BP Systolic 146 mmHg BP Diastolic 86 mmHg Heart Rate 79 /min O2 % BldC Oximetry 97 % Body Temperature 98.2 F [place] Score 3 Neck Circumference in inches 16 Pain Level 0 Results Description No Information Available Procedures Date Code Description Status 12/20/2017 45771 Sleep Staging 4Or More Para Completed Encounters Type Date Location Provider Dx Diagnosis Office Visit 03/26/2018 Main Office Nakia Cantu 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
--- OUTSIDE RECORDS SUMMARY | 2018-04-24 05:56 | XMS REPORT | Continuity of Care Document ---
:1970 External Reference #:[id number] Author Name Kristi Klein Care Team Providers Name Role Phone Ailyn Allison NP Care Team Information Cartography Teacher Unavailable Britta Donnelly M.D. Primary Care Physician Unavailable Payers Type Date Identification Numbers Payment Provider Subscriber Policy Number: [id number] [employer]Lesvia De La Torre Agnieszka Das PayID: [id number] [facility] [id number] [place] [address] Advance Directives Description No Information Available Problems [...] Oximetry 98 % Body Temperature 98.1 F [place] Score 7 Pain Level 0 01/03/2018 11:00am [...] Oximetry 97 % Body Temperature 98.2 F [place] Score 3 Neck Circumference in inches 16 Pain Level 0 Results Description No Information Available Procedures Date Code Description Status 12/20/2017 75624 Sleep Staging 4Or More Para Completed Encounters Type Date Location Provider Dx Diagnosis Office Visit 01/03/2018 Main Office Nakia Cantu 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
[2018-04-24] MEDS ORDERED: Lactated Ringers 1000 ML Bag* 1,000 ML IV SCH (06:00)
[2018-04-24] MEDS ORDERED: Famotidine IV* 10 MG/ML 2 ML (20 mg) IV ONE (06:00)
[2018-04-24] MEDS ORDERED: Dexamethasone IV* 4 MG/ML 1 ML (4 MG) IV SLOW PU ONE (06:00)
[2018-04-24] MEDS ORDERED: Ciprofloxacin 400MG IVPREMIX(* 400 MG/200 ML BAG ONE (06:20)
[2018-04-24] MEDS ORDERED: Dexamethasone IV* 4 MG/ML 1 ML (4 MG) ONE ×2 (06:20→06:26)
[2018-04-24] MEDS ORDERED: Heparin VIAL(*) 5000 UNITS/ML VIAL (FIVE THOUSAND) ONE (06:20)
[2018-04-24] MEDS ORDERED: Famotidine IV* 10 MG/ML 2 ML (20 mg) ONE (06:20)
[2018-04-24] MEDS ORDERED: Clindamycin 900 MG/D5W BAG(*) 900 MG/50 ML BAG IVPB ONE (06:20)
[2018-04-24] MEDS ORDERED: Buffered Lidocaine 0.9% SYRIN* 5 ML/SYR SYRINGE ONE (06:21)
[2018-04-24] MEDS ORDERED: Bupivacaine 0.25% W/EPI* 10 ML SDV ONE (07:00)
[2018-04-24] MEDS ORDERED: Methylene Blue 0.5 %* 50 MG/10 ML AMP IV ONE (07:00)
[2018-04-24] MEDS ORDERED: Ondansetron INJ* 2 MG/ML VIAL ONE ×2 (07:10→13:43)
[2018-04-24] MEDS ORDERED: Lidocaine 2% PF * 5 ML VIAL ONE (07:10)
[2018-04-24] MEDS ORDERED: Rocuronium* 10 MG/ML VIAL ONE ×3 (07:10→10:14)
[2018-04-24] MEDS ORDERED: Ketorolac INJ* 30 MG/ML 1 ML VIAL ONE (07:10)
[2018-04-24] MEDS ORDERED: fentaNYL* 50 MCG/ML 5 ML VIAL (250 MCG VIAL) ONE (07:10)
[2018-04-24] MEDS ORDERED: Bupivacaine 0.5% W/EPI SDV* 30 ML VIAL ONE (07:10)
[2018-04-24] MEDS ORDERED: Midazolam* 1 MG/ML 5 ML VIAL (5 MG) ONE (07:10)
[2018-04-24] MEDS ORDERED: Propofol* 10 MG/ML 20 ML BTL IV PUSH ONE (07:10)
[2018-04-24] MEDS ORDERED: Sugammadex * 200 MG/2 ML VIAL IV PUSH ONE (07:11)
[2018-04-24] MEDS ORDERED: fentaNYL* 50 MCG/ML 2 ML VIAL (100 MCG VIAL) ONE ×5 (08:07→13:17)
[2018-04-24] MEDS ORDERED: Naloxone* 0.4 MG/ML 1 ML VIAL IV PRN (08:19)
[2018-04-24] MEDS ORDERED: Scopolamine 1.5 mg* PATCH TRANSDERM PRN (08:19)
[2018-04-24] MEDS ORDERED: DiMENhydriNATE IV* 50 MG/ML VIAL IV PUSH PRN (08:19)
[2018-04-24] MEDS ORDERED: Ondansetron INJ* 2 MG/ML VIAL IV PRN (08:19)
[2018-04-24] MEDS ORDERED: Glycopyrrolate IV* 0.2 MG/ML 1 ML VIAL ONE (08:32)
[2018-04-24] MEDS ORDERED: Acetaminophen ADULT LIQ* 650 MG/20.3 ML UDC PO PRN (11:57)
[2018-04-24] MEDS ORDERED: HYDROmorphone INJ1* 1 MG/ML SYRINGE IV PRN (11:57)
[2018-04-24] MEDS ORDERED: diPHENhydraMINE IV* 50 MG/ML 1 ml VIAL (BENADRYL) SLOW PUSH PRN (11:57)
--- NOTE | 2018-04-24 11:57 | OP ---
Operative Report - Blank - Operative Report Date of Operation: 04/24/18 Note: Brief Operative Note Preop Dx: Morbid obesity; symptomatic cholelithiasis Postop Dx: same Procedure: Laparoscopic lysis of adhesions, cholecystectomy, and Monie en Y gastric bypass Anesthesia: GET Surgeon: Filemon Light Cleaner: JACKELINE Reaves PA-S Fluids: 2400 ml RL EBL: 100 ml Specimen: gallbladder Drains: none Findings: dictated
[2018-04-24] MEDS ORDERED: DiMENhydriNATE IV* 50 MG/ML VIAL ONE (12:23)
[2018-04-24] MEDS: fentaNYL* 50 MCG/ML 2 ML VIAL (100 MCG VIAL) IV PRN ×5 (12:30→13:19)
[2018-04-24] MEDS: Lactated Ringers 1000 ML Bag* 1,000 ML IV SCH ×2 (14:38→21:14)
[2018-04-24] MEDS: Ketorolac INJ* 30 MG/ML 1 ML VIAL IV PRN ×2 (15:43→23:53)
[2018-04-24] MEDS: HYDROmorphone INJ1* 1 MG/ML SYRINGE IV PRN ×2 (18:25→21:15)
[2018-04-24] MEDS: Famotidine IV* 10 MG/ML 2 ML (20 mg) IV SLOW PU SCH (21:17)
[2018-04-24] MEDS: Heparin VIAL(*) 5000 UNITS/ML VIAL (FIVE THOUSAND) SUBCUT SCH (21:18)
[2018-04-25] MEDS: HYDROmorphone INJ1* 1 MG/ML SYRINGE IV PRN ×6 (01:35→23:37)
[2018-04-25] MEDS: Lactated Ringers 1000 ML Bag* 1,000 ML IV SCH ×2 (03:51→11:31)
[2018-04-25] MEDS: Heparin VIAL(*) 5000 UNITS/ML VIAL (FIVE THOUSAND) SUBCUT SCH ×3 (05:54→22:39)
[2018-04-25] MEDS: Ondansetron INJ* 2 MG/ML VIAL IV PRN (06:55)
[2018-04-25] MEDS: Famotidine IV* 10 MG/ML 2 ML (20 mg) IV SLOW PU SCH ×2 (07:57→20:27)
--- NOTE | 2018-04-25 08:45 | OP ---
CC: [facility]; Dr. Britta Donnelly.* DATE OF OPERATION: 04/24/18 - ROOM #352 DATE OF : 66 SURGEON: Broderick Colbert MD ORACLE DATABASE ANALYST: BENJAMIN Rios ANESTHESIOLOGIST: Dr. Ordoñez. ANESTHESIA: General. PRE-OP DIAGNOSES: Cholelithiasis and clinically severe obesity. POST-OP DIAGNOSES: Cholelithiasis and clinically severe obesity. OPERATIVE PROCEDURE: Laparoscopic cholecystectomy and Monie-en-Y gastric bypass. ESTIMATED BLOOD LOSS: Less than 100 cc. FLUIDS: 2400 crystalloid fluid given. SPECIMEN: Gallbladder. DRAINS: None, Campos catheter inserted. INDICATIONS: The patient was identified in the preoperative area, marked, consent was signed. I discussed the case with her again and she agreed to proceed. She was taken to the operating room and placed on the operating table in supine position, preoperative antibiotics were given. Sequential devices were placed in bilateral extremities. General anesthesia was induced. The patient's abdomen was prepped and draped in a standard surgical fashion. Time- out was performed. Folds of the umbilicus were elevated anteriorly and a Veress needle inserted into the abdominal cavity, which was then allowed to insufflate to a pressure of 15 mmHg. The patient tolerated the insufflation well. A 12 mm trocar was then placed in the upper midline just left of midline. Laparoscope was inserted through this and a Veress needle showed no evidence of entry into abdominal organs. This was then removed and we placed a 12 mm at the left upper quadrant and a 12 mm in the right upper quadrant. The liver appeared enlarged especially at the right lobe, but I was concerned about the left lobe as well. A Jackie retractor was inserted through a subxiphoid incision and the liver was retracted anteriorly and to the right. It was quite enlarged and we could see the gastroesophageal fat pad and the liver was noted to be obscuring some portion laterally to this and so the trigone ligament on the left was taken with a LigaSure device. At this point, I felt comfortable and confident that we could see at this site and performed the gastric bypass. We then turned to our attention to the gall-bladder. The table was positioned head up with the right side up. The Jackie retractor was removed and a 5 mm trocar was inserted into the subxiphoid area and another 5 mm was placed at the right lateral area. The gallbladder was intact without evidence of inflammation. The fundus was grasped and retracted above the liver. The infundibular region was grasped and retracted towards the right lower quadrant. This exposed the cystic duct, as well as common bile duct with ease. We then took the peritoneum off the gallbladder, isolated the cystic duct to doubly clip this and ligated it and continued to isolate the cystic duct, which was quadruply clipped and the gallbladder removed from the liver bed and placed in an endoscopic retrieval bag. This was not perforated. Once it was in the endoscopic retrieval bag, we looked at the liver bed. There was some oozing and it was controlled with LigaSure device. We clamped the string of the bag, but did not remove it and then we turned to our attention to the adhesions in the pelvis. These were taken down at the midline extending it towards the right side with both blunt and sharp dissection. This is only omentum and it did extend down into the pelvis. At this point, I felt that we could identify the small bowel. The transverse colon was then identified, retracted anteriorly, and the ligament of Treitz identified, approximately 50 cm was counted off from the ligament of Treitz and the bowel was transected at this site with a 60 mm zavala MACO stapling device. An enterotomy was made at the proximal site that this would become the biliopancreatic limb. Next, additional 100 cm was counted off and another enterotomy was made and a jejunojejunostomy was created in the standard fashion with 60 mm zavala MACO stapling device and reapproximated the defect with interrupted 2-0 silk sutures in a figure- of-eight fashion. Mesenteric defect was similarly closed. The small bowel was run distally from the jejunojejunostomy until it was down to ileum. We did not take this down to the cecum, but I felt we were in the appropriate position. A biliopancreatic limb lay in the appropriate positioning , as well as the Monie limb. Next, attention was returned to the stomach. Jackie retractor was reinserted at the subxiphoid incision. We had placed another 5 mm trocar in the right upper quadrant. The Jackie retractor then was utilized to fold the liver over where we had dissected off the trigone and better see the lateral aspect of the proximal stomach. Next, we dissected at this site, bluntly dissecting the gastroesophageal fat pad and extending it towards the left crura. There was no evidence of hiatal hernia. Next, a retrogastric tunnel was made at approximately the third crossing vessel and the lesser curvature. We did take the vessel with LigaSure device, got into the lesser sac and fired a 45 mm zavala MACO stapling device across the stomach. We then completed the stomach pouch with 2 additional 60 mm zavala MACO stapling devices. They crossed each other and we did not utilize all the thanh and the pouch appeared the appropriate size. There was no evidence of injury. There was some oozing from staple line on the remnant stomach and a clip professional caster was used to control the bleeding at this site. Next, the liver retractor was reset to allow the lateral aspect of the left liver to fold over. This had obscured our view laterally, but was not of an issue at this point. We then allowed the anesthesiologist to place an Chely tube into the stomach pouch. It went in with ease and again the stomach pouch appeared the appropriate size, not too large. Next, the Monie limb was brought in apposition to this in the appropriate orientation and sutured from the antimesenteric site to the lateral staple edge. Next, a gastrotomy was made over the Chely tube using cautery and an enterotomy was also made. The stomach and Monie limb were then mated with a 30 mm zavala MACO stapling device. It was wide open. We utilized about 2.5 cm of the 3 cm stapler. We then reapproximated the defect with 3-0 PDS suture starting superiorly and inferiorly and tying them in the middle. Next, the anastomosis was tested with the methylene blue dye test in a standard fashion, clamping the Monie limb distally, the Chely tube was easily passed into the jejunum through the gastrojejunostomy anastomosis. We filled with methylene blue and it was a negative blue dye test overall after retracting the Chely tube back into the stomach, placing back into the Monie limb and suctioning off the blue dye by the anesthesiologist through the tubing. Without any blue dye exposed, we had the anesthesiologist remove the Chely tube altogether. We then used another 2-0 silk suture to bring the Monie limb up towards the stomach again and a second layer at the side of the initial sutures. We then reviewed the abdomen. There was some oozing at the distal stomach pouch on the medial aspect. This was controlled with clip professional caster. We reviewed the gallbladder bed and hemostasis was excellent at this site. Reviewed the pelvis where we had done lysis of adhesions and there was no evidence of bleeding at this site. Table was repositioned back to neutral. The JJ was identified and also appeared intact without any enteric contents or bleeding. Next, the table was placed to a neutral position. The gallbladder was then removed through the right upper quadrant 12 mm port site after dilating the site to remove the gallbladder with a large stone. It was passed off as specimen in the endoscopic retrieval bag. Next, we closed the fascia at this right upper quadrant port site with an 0- Vicryl suture using a Weck device. The abdomen was then allowed to collapse, trocars removed under direct vision and all 7 skin incisions were reapproximated with 4-0 Monocryl subcuticular sutures followed by Steri-Strips and sterile dressing. The patient tolerated the procedure well, was woken up in the OR and transferred to the PACU in stable condition. [id number]/[facility] #: [id number] HANSEL
[2018-04-25] MEDS: Ketorolac INJ* 30 MG/ML 1 ML VIAL IV PRN ×2 (10:38→20:27)
[2018-04-25] MEDS: D5W 1/2 NS KCl 20 Meq 1000 ML* 1,000 ML IV SCH ×2 (12:00→20:25)
[2018-04-25] MEDS: diPHENhydraMINE PO* 25 MG PO PRN ×2 (16:01→23:56)
--- NOTE | 2018-04-25 18:29 | PN ---
Progress Note - Progress Note Date of Service: 04/25/18 SOAP: Subjective: This is 47-y-o F who underwent Laparasoscopic lysis of adhesions, cholecystectomy, and Monie en Y gastric bypass. Pt complains of diffuse abdominal pain around the incision sites and rates 7/10 in severity. Denies fever, chills, chest pain and SOB. Patient had episode of nausea without vomitus this morning. No bowel movement or passing of flatus. Patient has been ambulating and tolerating liquids. Objective: [ Temp Pulse Resp BP Pulse Ox 97.9 F 58 18 122/64 97 04/25/18 15:52 04/25/18 15:52 04/25/18 16:01 04/25/18 15:52 04/25/18 15:52 Intake & Output 04/25/18 04/25/18 04/25/18 06:59 14:59 22:59 Intake Total 980 15 Output Total 130 200 75 Balance 850 -185 -75 Intake: IV Fluids 980 LR 980 Oral 0 15 Output: Urine 100 75 Campos 130 100 General: Well appearing, lying supine in bed. No signs of acute distress CV: RRR, normal S1, S2. No murmurs, rubs or gallops noted Lungs: CTA, no wheezes, rales or rohnchi Abdomen: Abdomen is soft and tender. Lap sites are dry,with intact dressing. Small amounts of drainage noted to uppermost dressing and hematoma noted around incision site closest to the umbilicus. Positive bowel sounds. Assessment: POD #1 S/P Laparasoscopic lysis of adhesions, cholecystectomy, and Monie en Y gastric bypass Plan: POD#1, Doing well Continue clear liquids Encouraged ambulation and incentive spirometry.
[2018-04-25] MEDS: Nystatin CREAM* 15 GM TUBE TOPICAL SCH (20:25)
[2018-04-26] MEDS: Ondansetron INJ* 2 MG/ML VIAL IV PRN (00:10)
[2018-04-26] MEDS: Ketorolac INJ* 30 MG/ML 1 ML VIAL IV PRN ×2 (03:24→10:30)
[2018-04-26] MEDS: D5W 1/2 NS KCl 20 Meq 1000 ML* 1,000 ML IV SCH ×3 (05:02→22:15)
[2018-04-26] MEDS: Heparin VIAL(*) 5000 UNITS/ML VIAL (FIVE THOUSAND) SUBCUT SCH ×3 (05:36→22:16)
[2018-04-26] MEDS: Famotidine IV* 10 MG/ML 2 ML (20 mg) IV SLOW PU SCH ×2 (08:03→20:30)
[2018-04-26] MEDS: HYDROcodone/ACET. 7.5/325 LIQ* 15 ML UDC PO PRN ×2 (08:03→18:04)
[2018-04-26] MEDS: Nystatin CREAM* 15 GM TUBE TOPICAL SCH ×3 (08:04→20:31)
--- NOTE | 2018-04-26 09:04 | PN ---
Progress Note - Progress Note Date of Service: 04/26/18 SOAP: Subjective: Pt seen and examined. good sleep last night. sternal pain, lower abdo pain, no flatus, no BM Objective: Temp Pulse Resp BP Pulse Ox 97.8 F 72 18 129/86 100 04/26/18 07:42 04/26/18 07:42 04/26/18 08:03 04/26/18 07:42 04/26/18 08:00 Intake & Output 04/25/18 04/26/18 04/26/18 22:59 06:59 14:59 Intake Total 1102 1130 Output Total 225 240 450 Balance 877 890 -450 a and o x3, nad lungs clear abdo: soft/ obese/ NT dressing removed. no redness, pos ecchymosis no calf tenderness path reviewed Assessment: POD2 jose manuel, rygb Plan: encourage PO continue IVF likely d/c home tomorrow
--- NOTE | 2018-04-26 11:50 | PN ---
Progress Note - Progress Note Date of Service: 04/26/18 SOAP: Subjective: This is 47-y-o F who underwent Laparasoscopic lysis of adhesions, cholecystectomy, and Monie en Y gastric bypass on 04/24/2018. Pt notes abdominal pain around the incision sites and rates 7-7.5/10 in severity. She states she slept better last night. Denies fever, chills, chest pain, SOB and calf tenderness. No bowel movement or passing of flatus. Patient has been ambulating and tolerating liquids. She ambulated 20 laps in the floor since 8: 00 AM this morning. Objective: [ Temp Pulse Resp BP Pulse Ox 97.8 F 72 18 129/86 100 04/26/18 07:42 04/26/18 07:42 04/26/18 08:03 04/26/18 07:42 04/26/18 08:00 Intake & Output 04/25/18 04/26/18 04/26/18 22:59 06:59 14:59 Intake Total 1102 1130 Output Total 225 240 450 Balance 877 890 -450 Intake: IV Fluids 982 980 D5W 1/2 NS 20 meq KCL 982 980 Oral 120 150 Output: Urine 225 240 450 Other: # Bowel Movements 0 General: Alert & oriented, sitting comfortably in bed, no signs of acute distress Lungs: CTA, no wheezes, rales or rohnchi CV: Regular rate and rhythm, normal S1, S2, no murmurs, rubs or gallops Abdomen: Abdomen is soft, obese, and tender. Lap sites are intact and dry without drainage. Large ecchymosis noted around incision site closest to the umbilicus. Positive bowel sounds. Assessment: POD #2 S/P Laparasoscopic lysis of adhesions, cholecystectomy, and Monie en Y gastric bypass Plan: Encourage PO and incentive spirometry Continue IVF Likely discharge tomorrow as per Dr. Colbert note.
[2018-04-26] MEDS: HYDROmorphone INJ1* 1 MG/ML SYRINGE IV PRN ×2 (16:08→20:44)
[2018-04-26] MEDS: diPHENhydraMINE PO* 25 MG PO PRN (20:30)
[2018-04-27] MEDS: HYDROcodone/ACET. 7.5/325 LIQ* 15 ML UDC PO PRN ×3 (00:14→12:22)
[2018-04-27] MEDS: HYDROmorphone INJ1* 1 MG/ML SYRINGE IV PRN ×2 (04:10→12:07)
[2018-04-27] MEDS: Heparin VIAL(*) 5000 UNITS/ML VIAL (FIVE THOUSAND) SUBCUT SCH (06:45)
[2018-04-27] MEDS: D5W 1/2 NS KCl 20 Meq 1000 ML* 1,000 ML IV SCH (06:46)
[2018-04-27] MEDS: Nystatin CREAM* 15 GM TUBE TOPICAL SCH (09:05)
[2018-04-27] MEDS: Famotidine IV* 10 MG/ML 2 ML (20 mg) IV SLOW PU SCH (09:39)
[2018-04-27] MEDS: diPHENhydraMINE PO* 25 MG PO PRN (11:13)
[2018-04-27 11:41] VITALS: BP 116/62
--- NOTE | 2018-04-28 07:50 | DS ---
CC: [facility]; Dr. Britta Donnelly DISCHARGE SUMMARY: DATE OF ADMISSION: DATE OF DISCHARGE: 04/27/18 PRIMARY CARE PHYSICIAN: Dr. Britta Donnelly. HOSPITAL COURSE: Ms. Das is a 47-year-old female, worked up as an outpatient with clinically severe obesity and cholelithiasis, who presented on same- day surgery, 04/24/18, for laparoscopic cho lecystectomy and Monie-en-Y gastric bypass. Please see operative report for details. In the postoperative period, the patient was transferred to the PACU on to the short-stay surgical un it. She had a Campos catheter in place that was removed on postoperative day 1. On postoperative day 1, the patient also underwent an upper GI study, which showed a normal passage o f contrast without evidence of leak. She was started on a p.o. diet. She had poor intake on the fir st day into the second. Her pain was controlled. She was urinating well and overall tolerating well . Due to decreased p.o. intake, the patient was held for another day where she was encouraged for mo re p.o. intake and by postoperative day 3, the patient was ready for discharge. PHYSICAL EXAMINATION: Physical exam was performed on the day of discharge. She is afebrile. Vital signs are stable. Alert and oriented x3, in no apparent distress. Head, Eyes, Ears, Nose, and Throat : Normocephalic, atraumatic. Sclerae anicteric. Mucous membranes are moist. Lungs: Clear to auscu ltation bilaterally. Abdomen: Soft, obese, mild incisional tenderness. Ecchymosis throughout much o f the abdomen, but no erythema. Dressings removed. Steri-Strips in place. Rectal exam not performe d. Extremities within normal limits with no calf tenderness. PLAN: Discharge home. The patient has an appointment next week at [facility]. She will resume all her preoperative medications. [id number]/[facility] #: [id number]
== END 2018-04-27 12:30 | disposition home or self-care (01) | DRG 403 ==
LOC: AA 05:51 → SSU 14:16
PROVIDERS: ADMIT Surgery; ATTEND Surgery
PROC: 0D164ZA Bypass Stomach to Jejunum, Percutaneous Endoscopic Approach (ICD-10-PCS; principal; 2018-04-24 07:30)
PROC: 0FT44ZZ Resection of Gallbladder, Percutaneous Endoscopic Approach (ICD-10-PCS; 2018-04-24 07:30)
DX: E66.01 Morbid (severe) obesity due to excess calories (principal); F32.0 Major depressive disorder, single episode, mild; K80.80 Other cholelithiasis without obstruction; G89.29 Other chronic pain; G47.33 Obstructive sleep apnea (adult) (pediatric); I10 Essential (primary) hypertension; K21.9 Gastro-esophageal reflux disease without esophagitis; M19.90 Unspecified osteoarthritis, unspecified site; Z68.43 Body mass index [BMI] 50.0-59.9, adult; M81.0 Age-related osteoporosis without current pathological fracture; M54.9 Dorsalgia, unspecified; E78.5 Hyperlipidemia, unspecified; I44.0 Atrioventricular block, first degree; Z98.51 Tubal ligation status; Z83.3 Family history of diabetes mellitus; Z82.49 Family history of ischemic heart disease and other diseases of the circulatory system; Z82.61 Family history of arthritis; Z80.3 Family history of malignant neoplasm of breast; Z83.49 Family history of other endocrine, nutritional and metabolic diseases; Z88.5 Allergy status to narcotic agent; Z88.0 Allergy status to penicillin; Z88.8 Allergy status to other drugs, medicaments and biological substances; Z87.442 Personal history of urinary calculi; Z80.1 Family history of malignant neoplasm of trachea, bronchus and lung; Z80.8 Family history of malignant neoplasm of other organs or systems; R11.0 Nausea; K66.0 Peritoneal adhesions (postprocedural) (postinfection)
CPT/HCPCS: 43644; 47562; 74246; 88304; A9270-GY; C1776; J0744; J1100; J1170; J1240; J1644; J1885; J2250; J2405; J2704; J3010

== ENCOUNTER 2018-05-06 04:30 | Emergency (ER) | payer OTHER ==
[2018-05-06] MEDS ORDERED: Ondansetron INJ* 2 MG/ML VIAL IV ONE (05:03)
[2018-05-06] MEDS ORDERED: fentaNYL* 50 MCG/ML 2 ML VIAL (100 MCG VIAL) IV SLOW PU PRN (05:04)
[2018-05-06] MEDS ORDERED: fentaNYL* 50 MCG/ML 2 ML VIAL (100 MCG VIAL) IV SLOW PU ONE ×2 (05:04→08:57)
--- NOTE | 2018-05-06 05:04 | ED ---
Abdominal Pain/Female - HPI Summary HPI Summary: This patient is a 47 year old F presenting to [facility] with a chief complaint of worsening left flank pain since yesterday with right sided abdominal pain today. Pain is 9/10 upon triage. Pain is worsened by sitting. Reports dry heaving, patient is unable to vomit. Patient had bariatric surgery on with Dr. Colbert, with whom she spoke with prior to coming to the ED and recommended coming to the ED due to possible infection. - History of Current Complaint Chief Complaint: EDAbdPain Stated Complaint: FLANK PAIN Time Seen by Provider: 05/06/18 04:40 Hx Obtained From: Patient Hx Last Menstrual Period: 2011 Onset/Duration: Gradual Onset, Lasting Days Timing: Constant Severity Initially: Moderate Severity Currently: Severe Pain Intensity: 9 Pain Scale Used: 0-10 Numeric Location: Discrete At: RUQ Aggravating Factor(s): Other: - sitting position Associated Signs and Symptoms: Positive: Back Pain - flank pain, Other: - dry heaving Allergies/Adverse Reactions: Allergies Allergy/AdvReac Type Severity Reaction Status Date / Time latex Allergy Severe See Comment Verified 05/06/18 04:36 morphine Allergy Severe Anaphylatic Verified 05/06/18 04:36 Shock Penicillins Allergy Severe Hives Verified 05/06/18 04:36 tuberculin, purified protein Allergy Intermediate Swelling Verified 05/06/18 04: 36 deriva [From Tubersol] NSAIDS (Non-Steroidal AdvReac See Comment Verified 05/06/18 04:36 Anti-Inflamma PMH/Surg Hx/FS Hx/Imm Hx Endocrine/Hematology History: Denies: Hx Diabetes Cardiovascular History: Reports: Hx Hypertension - not needed at this time - not working Denies: Hx Pacemaker/ICD, Other Cardiovascular Problems/Disorders - Had cardiac workup with Dr Harmon- negative tests per pt Respiratory History: Reports: Hx Sleep Apnea Denies: Hx Asthma, Other Respiratory Problems/Disorders GI History: Reports: Hx Gastroesophageal Reflux Disease - OCCASSIONAL, Other GI Disorders - Gallstones History: Reports: Hx Kidney Stones - hx of in past- none recent Denies: Hx Renal Disease, Other Problems/Disorders Musculoskeletal History: Reports: Hx Arthritis - LOWER BACK- 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 1997. 2000 X 3, [facility], [facility] [place] Appendectomy, [facility], 1976;. Hernia Repair x 2, [facility] ([facility]), 1998;. 1975 Tonsillectomy/ Addenoidectomy, [facility]. Rt SHOULDER - ROTATOR REPAIR, BICEP,TRICEP & LABRAL REPAIR Hx Anesthesia Reactions: Yes - just with intubation Infectious Disease History: No Infectious Disease History: Denies: Hx Clostridium Difficile, Hx Hepatitis, Hx Human Immunodeficiency Virus (HIV), Hx of Known/Suspected MRSA, Hx Shingles, Hx Tuberculosis, Hx Known/ Suspected VRE, Hx Known/Suspected VRSA, History Other Infectious Disease, Traveled Outside the in Last 30 Days - Family History Known Family History: Positive: Hypertension - Social History Alcohol Use: None Alcohol Amount: HOLIDAYS Substance Use Type: Reports: None Smoking Status (MU): Never Smoked Tobacco Have You Smoked in the Last Year: No Review of Systems Negative: Fever Positive: Abdominal Pain, Other - dry heaving Positive: flank pain All Other Systems Reviewed And Are Negative: Yes Physical Exam - Summary Physical Exam Summary: Appearance: appears uncomfortable and colicy, morbidly obese Skin: Warm, dry, no obvious rash Eyes: sclera anicteric, no conjunctival pallor ENT: mucous membranes moist, pharynx appears normal Neck: Supple, nontender Respiratory: Clear to auscultation, no signs of respiratory distress Cardiovascular: Normal S1, S2. No murmurs. Normal distal pulses in tibial and radial bilaterally. Abdomen: Soft, nontender, normal active bowel sounds present, incision appears to be healing normally Musculoskeletal: Normal, Strength/ROM Intact, left para-vertebral tenderness Neurological: A&Ox3, awake and alert, mentation is normal, speech is fluent and appropriate Psychiatric: affect is normal, does not appear anxious or depressed Triage Information Reviewed: Yes Vital Signs On Initial Exam: Initial Vitals Temp Pulse Resp BP Pulse Ox 97.3 F 84 16 131/89 99 05/06/18 04:32 05/06/18 04:32 05/06/18 04:32 05/06/18 04:32 05/06/18 04:32 Vital Signs Reviewed: Yes Diagnostics - Vital Signs Vital Signs Temp Pulse Resp BP Pulse Ox 05/06/18 04:32 97.3 F 84 16 131/89 99 - Laboratory Result Diagrams: 05/06/18 05:40 05/06/18 05:40 Lab Statement: Any lab studies that have been ordered have been reviewed, and results considered in the medical decision making process. Abdominal Pain Fem Course/Dx - Course Course Of Treatment: 47 year old F presenting with worsening left flank pain since yesterday with right sided abdominal pain today. Pain is worsened by sitting. Patient had bariatric surgery on with Dr. Colbert. Patient appears very uncomortable and colicy. Bloodwork is unremarkable. Patient is given Zofran and Fentanyl. A CT A/P with contrast is ordered; however patient will be signed out to Dr. Cortez awaiting results. - Diagnoses Provider Diagnoses: Upper abdominal pain Discharge - Sign-Out/Discharge Documenting (check all that apply): Sign-Out Patient Signing out patient TO: Nasim Cortez - CT A/P - Discharge Plan Condition: Stable Disposition: HOME Prescriptions: Ketorolac TAB * [Toradol TAB *] 10 mg PO TID #9 tab Patient Education Materials: Abdominal Pain (ED) Referrals: Britta Donnelly MD [Primary Care Provider] - 3 Days Additional Instructions: RETURN TO THE ED FOR ANY WORSENING OR NEW SYMPTOMS. Follow up with your PCP in 3 days. - Billing Disposition and Condition Condition: STABLE Disposition: Home - Attestation Statements Document Initiated by Dominicibmarkie: Yes Documenting Scribe: Dilcia Barnett Provider For Whom William is Documenting (Include Credential): Jose Lane MD Scribe Attestation: Dilcia Parks scribed for Jose Lane MD on 05/07/18 at 0020. Scribe Documentation Reviewed: Yes Provider Attestation: The documentation as recorded by the dominicibeDilcia accurately reflects the service I personally performed and the decisions made by me, Jose Lane MD
[2018-05-06] MEDS: NS 0.9% 1000 ML* 2,000 ML IV ONE ×2 (05:34→06:38)
[2018-05-06 05:53] LABS: ABS Basophils 0 10^3/ul (0-0.2); ABS Eosinophils 0.4 10^3/ul (0-0.6); ABS Monocytes 0.7 10^3/ul (0-0.8); ABS Neutrophils 4.4 10^3/ul (1.5-7.7); ABS Nucleated RBC 0 10^3/ul; Hematocrit 44 % (35-47); Hemoglobin 14.6 g/dl (12.0-16.0); Mean Corpuscular HGB Conc 33 g/dl (31-36); Mean Corpuscular Hemoglobin 30 pg (27-31); Mean Corpuscular Volume 89 fL (80-97); Mean Platelet Volume 9.3 fL (7.4-10.4); Nucleated Red Blood Cells % 0.1; Platelet Count 273 10^3/ul (150-450); Red Blood Count 4.92 10^6/ul (4.00-5.40); Red Cell Distribution Width 15 % (10.5-15); White Blood Count 7.4 10^3/ul (3.5-10.8)
[2018-05-06 06:12] LABS: EGFR Non-African American 83.4 (>60)
[2018-05-06] MEDS ORDERED: Iohexol 300* (CONTRAST) 10 ML SDV IV ONE (06:28)
[2018-05-06 06:57] LABS: Urine Appearance Cloudy; Urine Blood 2+ (Negative); Urine Color Amber; Urine Ketones Negative (Negative); Urine Protein Negative (Negative); Urine Red Blood Cell 2+(6-10/hpf) (Absent); Urine Specific Gravity 1.014 (1.010-1.030); Urine Urobilinogen Negative (Negative); Urine White Blood Cell 1+(6-10/hpf) (Absent)
[2018-05-06] MEDS: fentaNYL* 50 MCG/ML 2 ML VIAL (100 MCG VIAL) IV SLOW PU PRN ×3 (07:03→11:32)
--- NOTE | 2018-05-06 08:04 | ED ---
Progress - Progress Note Progress Note: This patient is a 47 year old F presenting to [facility] with a chief complaint of worsening left flank pain since yesterday with right sided abdominal pain today. Pain is 9/10 upon triage. Pain is worsened by sitting. Reports dry heaving, patient is unable to vomit. Patient had bariatric surgery with Dr. Colbert, with whom she spoke with prior to coming to the ED and recommended coming to the ED due to possible infection. Patient is being signed out, pending a CT Abd/Pelvis, from Dr. Lane to Dr. Cortez during a shift change. Re-Evaluation - Re-Evaluation 1 Re-Evaluation Time: 07:33 Change: Unchanged Course/Dx - Course Course Of Treatment: This patient is a 47 year old F presenting to [facility] with a chief complaint of worsening left flank pain since yesterday with right sided abdominal pain today. Pain is 9/10 upon triage. Pain is worsened by sitting. Reports dry heaving, patient is unable to vomit. Patient had bariatric surgery with Dr. Colbert, with whom she spoke with prior to coming to the ED and recommended coming to the ED due to possible infection. Patient had a laparoscopic lysis of adhesions, cholecystectomy, and Monie en Y gastric bypass. Patient is being signed out, pending a CT Abd/Pelvis, from Dr. Lane to Dr. Cortez during a shift change. ABdominal and pelvic CT IMPRESSION: Low density lesion in the anterior medial segment of the left lobe of the liver adjacent to falciform ligament which likely represents typical focal fatty infiltration. Patient is status post cholecystectomy. There is some mild mucosal thickening in the hepatic flexure of the colon. Underlying colitis should be considered. Anterior abdominal wall hernia low in the abdomen with hernia of omentum. I discussed the findings of the blood test results an abdominal pelvic CT with Dr. Colbert from surgery and he reports that he will consult for the patient. [facility] and Dr. Lao saw and examined the patient he requests for the patient to be discharged home with follow-up with him tomorrow morning. He requested to give the patient Toradol and a banana bag. Also he requested a prescription for Toradol for home. At this patient is feeling better the patient is hemodynamically stable alert and oriented 3. - Diagnoses Provider Diagnoses: Upper abdominal pain - Provider Notifications Discussed Care Of Patient With: Broderick Colbert - Surgery Time Discussed With Above Provider: 09:26 Instructed by Provider To: Will See In ED Discharge - Sign-Out/Discharge Documenting (check all that apply): Patient Departure - D/C, Receiving Sign-Out Receiving patient FROM: Jose Lane - Pending CT Abd/Pelvis - Discharge Plan Condition: Stable Disposition: HOME Prescriptions: Ketorolac TAB * [Toradol TAB *] 10 mg PO TID #9 tab Patient Education Materials: Abdominal Pain (ED) Referrals: Britta Donnelly MD [Primary Care Provider] - 3 Days Additional Instructions: RETURN TO THE ED FOR ANY WORSENING OR NEW SYMPTOMS. Follow up with your PCP in 3 days. - Billing Disposition and Condition Condition: STABLE Disposition: Home - Attestation Statements Document Initiated by Scribe: Yes Documenting Scribe: Alonzo Macias Provider For Whom Scribe is Documenting (Include Credential): Nasim Cortez MD Scribe Attestation: Alonzo Parks, scribed for Nasim Cortez MD on 05/06/18 at 1838. Scribe Documentation Reviewed: Yes Provider Attestation: The documentation as recorded by the Alonzo morales accurately reflects the service I personally performed and the decisions made by me, Nasim Cortez MD Diagnostics - Vital Signs Vital Signs Temp Pulse Resp BP Pulse Ox 05/06/18 09:10 18 05/06/18 07:03 20 05/06/18 06:22 136/84 05/06/18 06:16 80/46 05/06/18 05:47 134/77 05/06/18 05:35 22 05/06/18 04:32 97.3 F 84 16 131/89 99 - Laboratory Lab Results: Lab Results 05/06/18 05/06/18 05/06/18 Range/Units 05:40 05:40 05:40 WBC 7.4 (3.5-10.8) 10^3/ul RBC 4.92 (4.00-5.40) 10^6/ul Hgb 14.6 (12.0-16.0) g/dl Hct 44 (35-47) % MCV 89 (80-97) fL MCH 30 (27-31) pg MCHC 33 (31-36) g/dl RDW 15 (10.5-15) % Plt Count 273 (150-450) 10^3/ul MPV 9.3 (7.4-10.4) fL Neut % (Auto) 58.7 (38-83) % Lymph % (Auto) 27.0 (25-47) % Sac % (Auto) 8.8 H (0-7) % Eos % (Auto) 5.0 (0-6) % Baso % (Auto) 0.5 (0-2) % Absolute Neuts (auto) 4.4 (1.5-7.7) 10^3/ul Absolute Lymphs (auto) 2.0 (1.0-4.8) 10^3/ul Absolute Monos (auto) 0.7 (0-0.8) 10^3/ul Absolute Eos (auto) 0.4 (0-0.6) 10^3/ul Absolute Basos (auto) 0 (0-0.2) 10^3/ul Absolute Nucleated RBC 0 10^3/ul Nucleated RBC % 0.1 Sodium 138 (135-145) mmol/L Potassium 4.0 (3.5-5.0) mmol/L Chloride 103 (101-111) mmol/L Carbon Dioxide 28 (22-32) mmol/L Anion Gap 7 (2-11) mmol/L BUN 7 (6-24) mg/dL Creatinine 0.74 (0.51-0.95) mg/dL Est GFR ( Amer) 100.9 (>60) Est GFR (Non-Af Amer) 83.4 (>60) BUN/Creatinine Ratio 9.5 (8-20) Glucose 109 H (70-100) mg/dL Lactic Acid 1.5 (0.5-2.0) mmol/L Calcium 9.9 (8.6-10.3) mg/dL Total Bilirubin 0.90 (0.2-1.0) mg/dL AST 32 (13-39) U/L ALT 30 (7-52) U/L Alkaline Phosphatase 63 (34-104) U/L C-Reactive Protein 27.24 H (<8.01) mg/L Total Protein 7.5 (6.4-8.9) g/dL Albumin 4.1 (3.2-5.2) g/dL Globulin 3.4 (2-4) g/dL Albumin/Globulin Ratio 1.2 (1-3) Lipase 24 (11.0-82.0) U/L Beta HCG, Quant 2.63 mIU/mL Urine Color Urine Appearance Urine pH (5-9) Ur Specific [place] (1.010-1.030) Urine Protein (Negative) Urine Ketones (Negative) Urine Blood (Negative) Urine Nitrate (Negative) Urine Bilirubin (Negative) Urine Urobilinogen (Negative) Ur Leukocyte Esterase (Negative) Urine WBC (Auto) (Absent) Urine RBC (Auto) (Absent) Ur Squamous Epith Cells (Absent) Urine Bacteria (Absent) Urine Glucose (Negative) 05/06/18 Range/Units 06:34 WBC (3.5-10.8) 10^3/ul RBC (4.00-5.40) 10^6/ul Hgb (12.0-16.0) g/dl Hct (35-47) % MCV (80-97) fL MCH (27-31) pg MCHC (31-36) g/dl RDW (10.5-15) % Plt Count (150-450) 10^3/ul MPV (7.4-10.4) fL Neut % (Auto) (38-83) % Lymph % (Auto) (25-47) % Sac % (Auto) (0-7) % Eos % (Auto) (0-6) % Baso % (Auto) (0-2) % Absolute Neuts (auto) (1.5-7.7) 10^3/ul Absolute Lymphs (auto) (1.0-4.8) 10^3/ul Absolute Monos (auto) (0-0.8) 10^3/ul Absolute Eos (auto) (0-0.6) 10^3/ul Absolute Basos (auto) (0-0.2) 10^3/ul Absolute Nucleated RBC 10^3/ul Nucleated RBC % Sodium (135-145) mmol/L Potassium (3.5-5.0) mmol/L Chloride (101-111) mmol/L Carbon Dioxide (22-32) mmol/L Anion Gap (2-11) mmol/L BUN (6-24) mg/dL Creatinine (0.51-0.95) mg/dL Est GFR ( Amer) (>60) Est GFR (Non-Af Amer) (>60) BUN/Creatinine Ratio (8-20) Glucose (70-100) mg/dL Lactic Acid (0.5-2.0) mmol/L Calcium (8.6-10.3) mg/dL Total Bilirubin (0.2-1.0) mg/dL AST (13-39) U/L ALT (7-52) U/L Alkaline Phosphatase (34-104) U/L C-Reactive Protein (<8.01) mg/L Total Protein (6.4-8.9) g/dL Albumin (3.2-5.2) g/dL Globulin (2-4) g/dL Albumin/Globulin Ratio (1-3) Lipase (11.0-82.0) U/L Beta HCG, Quant mIU/mL Urine Color [place] Urine Appearance Cloudy Urine pH 6.0 (5-9) Ur Specific [place] 1.014 (1.010-1.030) Urine Protein Negative (Negative) Urine Ketones Negative (Negative) Urine Blood 2+ A (Negative) Urine Nitrate Negative (Negative) Urine Bilirubin Negative (Negative) Urine Urobilinogen Negative (Negative) Ur Leukocyte Esterase Trace A (Negative) Urine WBC (Auto) 1+(6-10/hpf) A (Absent) Urine RBC (Auto) 2+(6-10/hpf) A (Absent) Ur Squamous Epith Cells Present A (Absent) Urine Bacteria Absent (Absent) Urine Glucose Negative (Negative) Result Diagrams: 05/06/18 05:40 05/06/18 05:40 Lab Statement: Any lab studies that have been ordered have been reviewed, and results considered in the medical decision making process. - CT Abdomen/Pelvis CT CT Interpretation Completed By: Radiologist - 07:58. Low density lesion in the anterior medial segment of the left lobe of the liver adjacent to falciform ligament which likely represents typical focal fatty infiltration. Patient is status post cholecystectomy. There is some mild mucosal thickening in the hepatic flexure of the colon. Underlying colitis should be considered. Anterior abdominal wall hernia low in the abdomen with hernia of omentum.
[2018-05-06] MEDS ORDERED: Ketorolac INJ* 30 MG/ML 1 ML VIAL IV PUSH ONE (09:59)
[2018-05-06] MEDS ORDERED: Thiamine IV* 100 MG, Folic Acid IV* 1 MG, Multiple Vitamin IV ADULT* 10 ML in NS 0.9% 1... IV ONE (09:59)
[2018-05-06 11:41] VITALS: BP 130/71
== END 2018-05-06 11:40 | disposition home or self-care (01) ==
LOC: ED 04:30
DX: R10.10 Upper abdominal pain, unspecified (principal); Z88.5 Allergy status to narcotic agent; Z88.0 Allergy status to penicillin
CPT/HCPCS: 36415; 74177; 80053; 81003; 81015; 83605; 83690; 84702; 85025; 86140; 87040; 87086; 96361; 96374; 96375; 96376; 99283; J1885; J2405; J3010; J3411; Q9967

== ENCOUNTER 2019-05-01 12:39 | Emergency (ER) | payer BC, OTHER ==
--- NOTE | 2019-05-01 14:01 | UC ---
Throat Pain/Nasal Talat HPI - HPI Summary HPI Summary: Patient is a 48yo female presenting with c/o sinus infection, congestion, chills , body aches, headache, and sore throat x3 days. Patient states she is prone to colds that turn into sinus infections. Notes decreased appetite and fatigue. Denies fevers. Denies n/v/d. Denies SOB and wheezing. - History of Current Complaint Chief Complaint: UCRespiratory Stated Complaint: SINUS COMPLAINT,CONGESTION Hx Obtained From: Patient Hx Last Menstrual Period: 2011 Onset/Duration: Gradual Onset, Lasting Days Severity: Moderate Pain Intensity: 5 Pain Scale Used: 0-10 Numeric - Allergies/Home Medications Allergies/Adverse Reactions: Allergies Allergy/AdvReac Type Severity Reaction Status Date / Time latex Allergy Severe See Comment Verified 05/01/19 13:22 morphine Allergy Severe Anaphylatic Verified 05/01/19 13:22 Shock Penicillins Allergy Severe Hives Verified 05/01/19 13:22 tuberculin, purified protein Allergy Intermediate Swelling Verified 05/01/19 13: 22 deriva [From Tubersol] NSAIDS (Non-Steroidal AdvReac See Comment Verified 05/01/19 13:22 Anti-Inflamma Home Medications: Home Medications D-Methorphan/PE/Acetaminophen [Daytime Cold Multi-Symp Gelcap] 2 each PO BID PRN 05/01/19 [History Confirmed 05/01/19] PMH/Surg Hx/FS Hx/Imm Hx Previously Healthy: Yes - Surgical History Surgical History: Yes Surgery Procedure, Year, and Place: 1994. 1997. 2000 X 3, [place] [facility], [facility] [place] Appendectomy, [facility], 1976;. Hernia Repair x 2, [facility] ([facility]), 1998;. 1975 Tonsillectomy/ Addenoidectomy, [facility]. Rt SHOULDER - ROTATOR REPAIR, BICEP,TRICEP & LABRAL REPAIR. gastric bypass - Family History Known Family History: Positive: Hypertension - Social History Occupation: Employed Full-time Alcohol Use: Rare Alcohol Amount: HOLIDAYS Substance Use Type: None Smoking Status (MU): Never Smoked Tobacco Have You Smoked in the Last Year: No - Immunization History Most Recent Influenza Vaccination: none Most Recent Tetanus Shot: 2006 Most Recent Pneumonia Vaccination: none Vaccination Up to Date: Yes Review of Systems All Other Systems Reviewed And Are Negative: Yes Constitutional: Positive: Chills, Fatigue. Negative: Fever ENT: Positive: Sore Throat, Nasal Discharge, Sinus Congestion, Sinus Pain/ Tenderness. Negative: Ear Ache Respiratory: Positive: Cough - dry. Negative: Shortness Of Breath Cardiovascular: Positive: Negative Gastrointestinal: Positive: Negative Musculoskeletal: Positive: Myalgia Neurological: Positive: Headache Physical Exam Triage Information Reviewed: Yes Appearance: No Pain Distress, Ill-Appearing Vital Signs: Initial Vital Signs Temp 98.5 F 05/01/19 13:23 Pulse 58 05/01/19 13:23 Resp 17 05/01/19 13:23 BP 151/81 05/01/19 13:23 Pulse Ox 99 05/01/19 13:23 Lab Results 05/01/19 Range/Units 14:34 Influenza A (Rapid) Negative (Negative) Influenza B (Rapid) Negative (Negative) Vital Signs Reviewed: Yes Eyes: Positive: Conjunctiva Clear ENT: Positive: Hearing grossly normal, Pharyngeal erythema, Nasal congestion, TMs normal, Hoarse voice, Uvula midline Neck exam: Normal Neck: Positive: Supple, No Lymphadenopathy, Tenderness @ - anterior cervical nodes Respiratory Exam: Normal Respiratory: Positive: Lungs clear, Normal breath sounds, No respiratory distress. Negative: Crackles, Rhonchi, Stridor, Wheezing Cardiovascular Exam: Normal Cardiovascular: Positive: RRR Neurological: Positive: Alert Psychological: Positive: Age Appropriate Behavior Throat Pain/Nasal Course/Dx - Course Course Of Treatment: Negative rapid flu. Discussed likely viral illness as source of symptoms. Patient states she is prone to sinus infections so I treated with Doxy for 5 days. Instructed to continue with symptomatic treatment and follow up with PCP if symptoms persist. Patient voiced understanding and agreed with the treatment plan. - Differential Dx/Diagnosis Provider Diagnosis: Acute rhinosinusitis, Flu-like symptoms Discharge ED - Sign-Out/Discharge Documenting (check all that apply): Patient Departure All imaging exams completed and their final reports reviewed: No Studies - Discharge Plan Condition: Stable Disposition: HOME Prescriptions: DOXYcycline CAP(*) [DOXYcycline 100MG CAP(*)] 100 mg PO BID #10 cap Patient Education Materials: Rhinosinusitis (ED), Viral Syndrome (ED) Forms: *Work Release Referrals: Britta Donnelly MD [Primary Care Provider] - If Needed Additional Instructions: As discussed, your rapid flu test was negative. Take Doxycycline as prescirbed for the treatment of your sinusitis. You may use nasal saline spray or Flonase as directed for symptomatic relief. You may also take over the counter pain medications as directed for pain relief. Get plenty of rest and increase your fluid intake. Follow up with your primary care doctor if your symptoms do not resolve within 7 days. - Billing Disposition and Condition Condition: STABLE Disposition: Home
[2019-05-01 14:46] LABS: Influenza A Molecular NEGATIVE (Negative); Influenza B Molecular NEGATIVE (Negative)
[2019-05-01 14:53] VITALS: BP 151/81
== END 2019-05-01 14:59 | disposition home or self-care (01) ==
LOC: UCCORT 12:39
DX: J01.90 Acute sinusitis, unspecified (principal); J02.9 Acute pharyngitis, unspecified; M79.10 Myalgia, unspecified site; R05 Cough; Z88.0 Allergy status to penicillin; Z88.5 Allergy status to narcotic agent; Z88.6 Allergy status to analgesic agent; Z91.040 Latex allergy status; Z88.8 Allergy status to other drugs, medicaments and biological substances
CPT/HCPCS: 99212; G0463

== ENCOUNTER 2019-07-02 17:31 | Emergency (ER) | payer BC, OTHER ==
[2019-07-02 18:08] VITALS: BP 138/83
[2019-07-02] MEDS ORDERED: Ketorolac *IM* INJ* 60 MG/2 ML VIAL IM ONE (18:20)
--- NOTE | 2019-07-02 18:20 | UC ---
Back Pain HPI - HPI Summary HPI Summary: 48yo with history of lumbar disc disease with past disc herniation, with increase in pain after she bent to rock picker a paper clip today. No leg weakness, urinary loss, paresthesias. She has responded in the past to Toradol and requests an injection. She has used hydrocodone without relief of pain, and uses gabapentin 800mg three times daily on a regular basis. - History of Current Complaint Chief Complaint: UCBackPain Stated Complaint: BACK PAIN Time Seen by Provider: 07/02/19 18:04 Hx Obtained From: Patient Hx Last Menstrual Period: 2011 Onset/Duration: Gradual Onset, Worse Since - this afternoon Timing: Constant Severity Initially: Moderate Severity Currently: Moderate Pain Intensity: 8 Character: Aching, Stiffness Aggravating Factor(s): Movement, Lifting, Bending, Walking Alleviating Factor(s): Position Associated Signs And Symptoms: Positive: Negative - Risk Factors AAA Risk Factors: Negative TAD Risk Factors: Negative Cauda Equina Risk Factors: Negative Epidural Abscess Risk Factors: Negative - Allergies/Home Medications Allergies/Adverse Reactions: Allergies Allergy/AdvReac Type Severity Reaction Status Date / Time latex Allergy Severe See Comment Verified 07/02/19 18:02 morphine Allergy Severe Anaphylatic Verified 07/02/19 18:02 Shock Penicillins Allergy Severe Hives Verified 07/02/19 18:02 tuberculin, purified protein Allergy Intermediate Swelling Verified 07/02/19 18: 02 deriva [From Tubersol] NSAIDS (Non-Steroidal AdvReac See Comment Verified 07/02/19 18:02 Anti-Inflamma Home Medications: Home Medications Gabapentin 800 mg PO TID 07/02/19 [History Confirmed 07/02/19] Hydrocodone/Acetaminophen [Hydrocodone-Acetamin 5-325 mg] 1 tab PO TID PRN 07/02 [History Confirmed 07/02/19] PMH/Surg Hx/FS Hx/Imm Hx - Additional Past Medical History Additional PMH: post bariatric surgery. - Surgical History Surgical History: Yes Surgery Procedure, Year, and Place: 1994. 1997. [facility] 3[facility] [place] Appendectomy, [facility], 1976;. Hernia Repair x 2, [facility] ([facility]), 1998;. 1975 Tonsillectomy/ Addenoidectomy, [facility]. Rt SHOULDER - ROTATOR REPAIR x2, BICEP,TRICEP & LABRAL REPAIR. gastric bypass - Family History Known Family History: Positive: Hypertension - Social History Occupation: Employed Full-time Alcohol Use: Rare Alcohol Amount: HOLIDAYS Substance Use Type: None Smoking Status (MU): Never Smoked Tobacco Have You Smoked in the Last Year: No - Immunization History Most Recent Influenza Vaccination: none Most Recent Tetanus Shot: 2006 Most Recent Pneumonia Vaccination: none Vaccination Up to Date: Yes Review of Systems All Other Systems Reviewed And Are Negative: Yes Constitutional: Positive: Negative Skin: Positive: Negative Eyes: Positive: Negative ENT: Positive: Negative Respiratory: Positive: Negative Cardiovascular: Positive: Negative Gastrointestinal: Positive: Negative Genitourinary: Positive: Negative Motor: Positive: Decreased ROM Neurovascular: Positive: Negative Musculoskeletal: Positive: Myalgia Neurological: Positive: Negative Psychological: Positive: Negative Is Patient Immunocompromised?: No Physical Exam Triage Information Reviewed: Yes Appearance: Well-Appearing, Pain Distress - moderate Vital Signs: Initial Vital Signs Temp 97.1 F 07/02/19 18:03 Pulse 81 07/02/19 18:03 Resp 16 07/02/19 18:03 BP 138/83 07/02/19 18:03 Pulse Ox 100 07/02/19 18:03 Eye Exam: Normal ENT Exam: Normal Neck exam: Normal Respiratory: Positive: Lungs clear, Normal breath sounds Cardiovascular: Positive: RRR, No Murmur Musculoskeletal: Positive: Strength Intact, ROM Limited @ - lumbar spine with + left paraspinal muscle spasm., Other: - normal toe walking. Psychological Exam: Normal Skin Exam: Normal Back Pain Course/Dx - Course Course Of Treatment: Toradol given with some relief of pain. - Differential Dx/Diagnosis Differential Diagnosis/HQI/PQRI: Herniated Disc, Strain, Sprain Provider Diagnosis: Lumbago Discharge ED - Sign-Out/Discharge Documenting (check all that apply): Patient Departure All imaging exams completed and their final reports reviewed: No Studies - Discharge Plan Condition: Stable Disposition: HOME Patient Education Materials: Low Back Strain (ED) Referrals: Britta Donnelly MD [Primary Care Provider] - Additional Instructions: You have had an injection of toradol, and will follow up with Dr. Donnelly as arranged later this week. - Billing Disposition and Condition Condition: STABLE Disposition: Home
== END 2019-07-02 19:09 | disposition home or self-care (01) ==
LOC: UCCORT 17:31
DX: M54.5 Low back pain (principal); Z91.040 Latex allergy status; Z88.0 Allergy status to penicillin; Z88.6 Allergy status to analgesic agent; Z91.09 Other allergy status, other than to drugs and biological substances; Z88.5 Allergy status to narcotic agent
CPT/HCPCS: 96372; 99211; G0463; J1885